=== PATIENT | male | born 1950 | race Caucasian/White ===

== ENCOUNTER 2017-10-11 14:40 | Inpatient (IN) | payer MEDICARE, OTHER ==
--- OUTSIDE RECORDS SUMMARY | 2017-10-20 08:50 | XMS REPORT ---
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 Active Onset: 07/24/2013 Mitral valve disorder Trinidad Marquez M.D. Active Onset: 07/24/2013 Congestive heart failure Trinidad Marquez M.D. 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 Active granulomas Onset: 11/22/2013 Epistaxis Trinidad Marquez M.D. Active Onset: 01/22/2014 Atrial flutter Trinidad Marquez M.D. Active Onset: 06/07/2014 Localized, primary osteoarthritis of Rylan Parham M.D. Active the hand Onset: 07/16/2014 Tricuspid valve disorder, non-rheumatic Trinidad Marquez M.D. Active Onset: 10/17/2014 Dyssomnpurvi Santiago MD Active Onset: 11/29/2014 Obstructive sleep apnea syndrome Ada Santiago MD Active Onset: 07/09/2015 Incomplete rotatr-cuff tear/ruptr of r Aston Liu M.D. Active shoulder, not trauma Onset: 07/09/2015 Metatarsalgia Aston Liu M.D. Active Onset: 07/02/2016 Paroxysmal atrial fibrillation Trinidad Marquez M.D. Active Family History Date Family Member(s) Problem(s) Comments General Heart Disease Father and paternal grandfather General Stroke Paternal grandmother Father CHF , Sleep Apnea Mother Heart Failure Siblings None Social History Type Date Description Comments Marital Status Lives With Alone Work Status Retired Cigarette Use Former Cigarette Smoker ETOH Use Rarely consumes alcohol 3 or 4 a month Smoking 1985 Patient is a former smoker Recreational Drug Use Never Used Drugs Daily Caffeine Herbal tea Daily Caffeine Comsumes on average 1 cup of decaff coffee per day Exercise Type/Frequency Exercises regularly not as regular in the cold weather Allergies, Adverse Reactions, Alerts Date Description Reaction Status Severity Comments 07/24/2013 NKDA active 08/28/2013 Cat Dander asthma- wheezing, active constrict, eyes itchy, puffy eyes 07/16/2014 Ragweed active per patient 09/07/2017 Dust Mites active 10/15/2017 Rabbits And Guinea Pigs active Medications Medication Date Status Form Strength Qnty SIG Indications Ordering Provider Magnesium Oxide 01/19/ Active Tablets 400(241.3 100ta 1 tab by Trinidad 2014 Mg) mg bs mouth every [place], day five M.D. days a week Atorvastatin / Active Tablets 10mg 30tab 1 po qd Unknown Calcium 0000 s Vitamin D3 High / Active Capsules 1000Unit 1 po qd in Unknown Potency 0000 the winter Fluocinolone / Active Cream 0.025% 60uni prn Unknown Acetonide 0000 ts Calcipotriene / Active Cream 0.005% 120un apply Unknown 0000 its nightly to psoriasis prn Amoxicillin / Active Capsules 500mg 12cap 4 tablets 1 Unknown 0000 s hour before dental work Lisinopril / Active Tablets 2.5mg 1 by mouth Unknown 0000 every day Eliquis / Active Tablets 5mg 1 tablet po Alex, 0000 twice daily Fay Tavares MD Desloratadine / Active Tablets 5mg 1 tablet po Alex, 0000 daily season Fay taken in MD Chaitanya fall Metoprolol / Active Tablets 50mg 60tab 1 by mouth Trinidad Tartrate s twice a day Yesenia Marquez Vitamin B12 / Active Tablets 1000mcg 1 by mouth Unknown 0000 ER every day Vitamin B6 / Active 100 mg daily Unknown 0000 Sotalol HCL (AF) 08/26/ Hx Tablets 80mg 180ta 1 tab by I48.4 Trinidad 2016 - bs mouth twice [place], 10/11/ a day M.D. 2017 Multaq 06/11/ Hx Tablets 400mg 180ta 1 by mouth I48.4 Trinidad 2013 - bs twice a day Jimmy, M.DBriana 2016 Amiodarone HCL 02/23/ Hx Tablets 200mg 60tab 1-2 by mouth 427.32 Trinidad 2013 - s every day as Jimmy, M.DBriana 2013 Sotalol HCL (AF) 01/22/ Hx Tablets 80mg 90tab 1 tab twice 427.32 Trinidad 2013 - s a day Jimmy, M.D. 2013 Metoprolol 11/22/ Hx Tablets 50mg 60tab 1 tab po bid Trinidad Tartrate 2013 Jimmy, M.D. 2013 Metoprolol 11/07/ Hx Tablets 25mg 1 po bid Trinidad Tartrate 2013 - Jimmy, M.D. 2013 Metoprolol 08/07/ Hx Tablets 50mg 90tab 1 1/2 po qd Trinidad Succinate ER 2012 - ER 24HR s Jimmy, 11/01/ M.D. 2013 Spironolactone 08/07/ Hx Tablets 25mg 30tab 1 po qod Trinidad 2012 - alternating [place], 11/22/ with lasix. M.D. 2014 Voltaren Gel 03/04/ Hx Gel 1% 3X100 2 gram to Danisha 2010 - G elbow 4 Enriquez-Yo 11/01/ times A day Yesenia christopher 2013 Warfarin Sodium / Hx 5mg As directed Mehran 0000 - adjusted Dr. Carlitos MD Carlitos 2016 Laurent Vitamin B6 00/00/ Hx 100mg po qd Unknown - 2016 Complex B 0000/ Hx Tablets 90tab 1 po qd Unknown 0000 - s 2017 Furosemide /00/ Hx Tablets 40mg 60tab 1 po qod Unknown 0000 - s alternating 2013 spironolacto ne. Potassium / Hx 8Meq Unknown 0000 - 2012 Diltiazem CD / Hx Caps ER 120mg 90cap 1 po qd Unknown 0000 - 24HR s 2012 Glucosamine 00/ Hx Capsules 1500Com 1 po qd Unknown Chondroitin 1500 0000 - Complex 2013 Calcipotriene / Hx Cream 0.005% prn Unknown - 2013 Clarinex / Hx 5mg prn seasonal Unknown - 2016 Proair HFA / Hx Aerosol 108(90Bas 1unit 2 puffs po Unknown 0000 - e) s q4h prn 09/16/ /Act 2013 Cheratussin ac / Hx prn Unknown - 2013 Acetaminophen ER / Hx Tablets 650mg 120ta 1 tab by Unknown 0000 - ER bs mouth twice 02/22/ a day as 2014 needed Aspirin / Hx Tablets 81mg 1 po qd Unknown - 2013 Pantoprazole / Hx Tablets 20mg 30tab 1 po qd Unknown Sodium 0000 - DR s 2013 Potassium 00/ Hx Tablets 10Meq 60tab 2 po qd Unknown Chloride SR 0000 - ER s 2013 Docusate Sodium / Hx Capsules 100mg 60cap 1 po bid Unknown 0000 - s 2013 Omeprazole 00/ Hx Capsules 40mg 30cap 1 by mouth Unknown 0000 - DR s every day 2014 Cpap /00/ Hx every night Unknown - 2015 Medications Administered in Office Medication Date Status Form Strength Qnty SIG Indications Ordering Provider Celestone 3 mg Administered Injection Danisha and 3mg 011 Juan fernández M.D. Vital Signs Date Vital Result Comment 10/15/2017 Height 67.5 inches 5'7.50" Weight 171.00 lb no shoes Heart Rate 84 /min BP Systolic Sitting 108 mmHg Lue reg cuff BP Diastolic Sitting 72 mmHg Lue reg cuff BP Systolic Standing 100 mmHg Lue reg cuff BP Diastolic Standing 72 mmHg Lue reg cuff Respiratory Rate 16 /min BMI (Body Mass Index) 26.4 kg/m2 Ejection Fraction 40-45% echo 08/01/17 10/11/2017 Height 67.5 inches 5'7.50" Weight 172.00 lb No shoes Heart Rate 84 /min BP Systolic Sitting 120 mmHg Lue reg cuff BP Diastolic Sitting 74 mmHg Lue reg cuff BP Systolic Standing 120 mmHg Lue reg cuff BP Diastolic Standing 80 mmHg Lue reg cuff Respiratory Rate 17 /min BMI (Body Mass Index) 26.5 kg/m2 Ejection Fraction 40-45% 08/01/2017-echo 09/07/2017 Height 67.5 inches 5'7.50" Weight 174.00 lb with out shoes Heart Rate 88 /min BP Systolic Sitting 136 mmHg Lue reg cuff BP Diastolic Sitting 86 mmHg Lue reg cuff BP Systolic Standing 128 mmHg Lue reg cuff BP Diastolic Standing 84 mmHg Lue reg cuff Respiratory Rate 17 /min BMI (Body Mass Index) 26.8 kg/m2 Ejection Fraction 40-45% date 08/01/17 ECHO 08/26/2017 Height 67.5 inches 5'7.50" Weight 174.00 lb without shoes Heart Rate 82 /min BP Systolic Sitting 118 mmHg Rue reg cuff BP Diastolic Sitting 84 mmHg Rue reg cuff BP Systolic Standing 112 mmHg Rue reg cuff BP Diastolic Standing 76 mmHg Rue reg cuff Respiratory Rate 17 /min BMI (Body Mass Index) 26.8 kg/m2 Ejection Fraction 40-45% date 08/01/17 07/20/2017 Height 67.5 inches 5'7.50" Weight 178.00 lb with shoes Heart Rate 84 /min BP Systolic Sitting 120 mmHg Rue reg cuff BP Diastolic Sitting 80 mmHg Rue reg cuff BP Systolic Standing 114 mmHg Rue reg cuff BP Diastolic Standing 74 mmHg Rue reg cuff Respiratory Rate 17 /min BMI (Body Mass Index) 27.5 kg/m2 Ejection Fraction 50-55% date 03/27/2014 ECHO 07/02/2016 Height 67.5 inches 5'7.50" Weight 168.00 lb w/o shoes Heart Rate 86 /min BP Systolic Sitting 102 mmHg Rue, reg cuff BP Diastolic Sitting 70 mmHg Rue, reg cuff BP Systolic Standing 104 mmHg Rue BP Diastolic Standing 70 mmHg Rue Respiratory Rate 16 /min BMI (Body Mass Index) 25.9 kg/m2 Ejection Fraction 50-55% as of 03/28/14 echo 07/09/2015 Height 67.5 inches 5'7.50" Weight 172.00 lb Heart Rate 92 /min BP Systolic Sitting 126 mmHg BP Diastolic Sitting 90 mmHg Pain Level 7 BMI (Body Mass Index) 26.5 kg/m2 07/02/2015 Height 67.5 inches 5'7.50" Weight 172.00 lb with shoes Heart Rate 76 /min BP Systolic Sitting 142 mmHg R arm , Reg cuff BP Diastolic Sitting 100 mmHg R arm , Reg cuff BP Systolic Standing 148 mmHg BP Diastolic Standing 100 mmHg Respiratory Rate 18 /min BMI (Body Mass Index) 26.5 kg/m2 Ejection Fraction 50-55% 03/28/14 01/17/2015 Height 67.5 inches 5'7.50" Weight 168.00 lb Heart Rate 75 /min BP Systolic Sitting 120 mmHg BP Diastolic Sitting 80 mmHg O2 % BldC Oximetry 96 % BMI (Body Mass Index) 25.9 kg/m2 Neck Circumference in inches 15.5 01/07/2015 Height 67.5 inches 5'7.50" Weight 171.31 lb no shoes Heart Rate 80 /min BP Systolic Sitting 136 mmHg LA, reg cuff BP Diastolic Sitting 88 mmHg LA, reg cuff BP Systolic Standing 128 mmHg LA BP Diastolic Standing 84 mmHg LA Respiratory Rate 16 /min BMI (Body Mass Index) 26.4 kg/m2 11/29/2014 Heart Rate 86 /min BP Systolic Sitting 148 mmHg BP Diastolic Sitting 84 mmHg Respiratory Rate 20 /min O2 % BldC Oximetry 97 % 10/17/2014 Height 68 inches 5'8" Weight 170.38 lb with shoes on Heart Rate 52 /min BP Systolic Sitting 142 mmHg BP Diastolic Sitting 80 mmHg Respiratory Rate 18 /min Body Temperature 98.6 F O2 % BldC Oximetry 98 % BMI (Body Mass Index) 25.9 kg/m2 Neck Circumference in inches 16 09/17/2014 Height 67 inches 5'7" Weight 171.00 lb w/shoes Heart Rate 74 /min BP Systolic Sitting 142 mmHg LA reg cuff BP Diastolic Sitting 78 mmHg LA reg cuff BP Systolic Standing 140 mmHg LA reg cuff BP Diastolic Standing 80 mmHg LA reg cuff Respiratory Rate 12 /min BMI (Body Mass Index) 26.8 kg/m2 07/16/2014 Height 67 inches 5'7" Weight 167.00 lb without shoes Heart Rate 80 /min BP Systolic Sitting 156 mmHg Ra reg cuff BP Diastolic Sitting 100 mmHg Ra reg cuff BP Systolic Standing 160 mmHg Ra reg cuff BP Diastolic Standing 100 mmHg Ra reg cuff Respiratory Rate 17 /min BMI (Body Mass Index) 26.2 kg/m2 06/07/2014 Height 67.5 inches 5'7.50" Weight 169.00 lb Heart Rate 80 /min BP Systolic Sitting 130 mmHg BP Diastolic Sitting 82 mmHg Pain Level 7 BMI (Body Mass Index) 26.1 kg/m2 02/23/2014 Height 67.5 inches 5'7.50" Weight 167.00 lb with out shoes Heart Rate 100 /min BP Systolic Sitting 130 mmHg Ra reg cuff BP Diastolic Sitting 98 mmHg Ra reg cuff BP Systolic Standing 128 mmHg Ra reg cuff BP Diastolic Standing 90 mmHg Ra reg cuff Respiratory Rate 17 /min BMI (Body Mass Index) 25.8 kg/m2 02/21/2014 Height 67.5 inches 5'7.50" Weight 170.00 lb Heart Rate 92 /min BP Systolic Sitting 134 mmHg LA reg cuff BP Diastolic Sitting 94 mmHg LA reg cuff BMI (Body Mass Index) 26.2 kg/m2 02/02/2014 Height 67.5 inches 5'7.50" Weight 167.00 lb Heart Rate 80 /min BP Systolic Sitting 116 mmHg LA reg cuff BP Diastolic Sitting 82 mmHg LA reg cuff BP Systolic Standing 114 mmHg LA BP Diastolic Standing 86 mmHg LA Respiratory Rate 18 /min BMI (Body Mass Index) 25.8 kg/m2 01/26/2014 Height 67.5 inches 5'7.50" Weight 168.00 lb Heart Rate 88 /min BP Systolic Standing 116 mmHg LA reg cuff BP Diastolic Standing 92 mmHg LA reg cuff BP Systolic Lying Down 114 mmHg LA BP Diastolic Lying Down 90 mmHg LA Respiratory Rate 16 /min BMI (Body Mass Index) 25.9 kg/m2 01/22/2014 Height 67 inches 5'7" Weight 168.31 lb no shoes Heart Rate 76 /min BP Systolic Sitting 126 mmHg LA, reg cuff BP Diastolic Sitting 84 mmHg LA, reg cuff BP Systolic Standing 124 mmHg LA BP Diastolic Standing 84 mmHg LA Respiratory Rate 14 /min BMI (Body Mass Index) 26.4 kg/m2 11/22/2013 Height 67 inches 5'7" Weight 163.00 lb Heart Rate 100 /min BP Systolic Sitting 124 mmHg LA reg cuff BP Diastolic Sitting 82 mmHg LA reg cuff BP Systolic Standing 124 mmHg LA BP Diastolic Standing 88 mmHg LA Respiratory Rate 18 /min BMI (Body Mass Index) 25.5 kg/m2 08/28/2013 Height 67.5 inches 5'7.50" Weight 158.00 lb with shoes Heart Rate 8286 /min sit and stand HR irreg. BP Systolic Sitting 100 mmHg L arm reg cuff BP Diastolic Sitting 74 mmHg L arm reg cuff BP Systolic Standing 118 mmHg L arm reg cuff BP Diastolic Standing 80 mmHg L arm reg cuff Respiratory Rate 16 /min BMI (Body Mass Index) 24.4 kg/m2 08/22/2013 Height 67.5 inches 5'7.50" Weight 158.00 lb 4 Lbs increase from 08/07/13 Heart Rate 76 /min BP Systolic Sitting 120 mmHg Lf arm, reg cuff BP Diastolic Sitting 74 mmHg Lf arm, reg cuff BP Systolic Standing 118 mmHg BP Diastolic Standing 70 mmHg Respiratory Rate 14 /min BMI (Body Mass Index) 24.4 kg/m2 08/07/2013 Height 67.5 inches 5'7.50" Weight 154.50 lb Heart Rate 80 /min BP Systolic Sitting 118 mmHg Ra reg cuff BP Diastolic Sitting 84 mmHg Ra reg cuff BP Systolic Standing 116 mmHg Ra BP Diastolic Standing 82 mmHg Ra Respiratory Rate 16 /min BMI (Body Mass Index) 23.8 kg/m2 07/24/2013 Height 67 inches 5'7" Weight 151.00 lb Heart Rate 60 /min irregular BP Systolic 128 mmHg Ra reg cuff BP Diastolic 82 mmHg Ra reg cuff BP Systolic Sitting 124 mmHg LA BP Diastolic Sitting 82 mmHg LA BP Systolic Standing 132 mmHg BP Diastolic Standing 84 mmHg BMI (Body Mass Index) 23.6 kg/m2 11/21/2010 Height 68 inches 5'8" Weight 155.00 lb Heart Rate 72 /min BP Systolic 138 mmHg BP Diastolic 78 mmHg BMI (Body Mass Index) 23.6 kg/m2 Results Test Date Test Result H/L Range Note Order 07/02/2016 EKG <pending> Basic Metabolic Panel 12/26/2015 Sodium 137 mmol/L 133-145 Potassium 4.2 mmol/L 3.5-5.0 Chloride 103 mmol/L 101-111 Co2 Carbon Dioxide 25 mmol/L 22-32 Anion Gap 9 mmol/L 2-11 Glucose 82 mg/dL 70-100 Blood Urea Nitrogen 17 mg/dL 6-24 Creatinine 0.97 mg/dL 0.67-1.17 BUN/Creatinine Ratio 17.5 8-20 Calcium 9.4 mg/dL 8.6-10.3 Egfr Non- 77.7 >60 Egfr 99.9 >60 1 Laboratory test finding 12/26/2015 LDL Cholesterol Direct 85 mg/dL 2 Ast (Sgot) 58 U/L High 13-39 CBC Auto Diff 07/05/2015 White Blood Count 5.5 10^3/uL 4.8-10.8 Red Blood Count 4.48 10^6/uL 4.0-5.4 Hemoglobin 15.8 g/dL 14.0-18.0 Hematocrit 47 % 42-52 Mean Corpuscular Volume 105 fL High 80-94 Mean Corpuscular Hemoglobin 35 pg High 27-31 Mean Corpuscular HGB Conc 34 g/dL 31-36 Red Cell Distribution Width 13 % 10.5-15 Platelet Count 177 10^3/uL 150-450 Mean Platelet Volume 8 um3 7.4-10.4 Abs Neutrophils 3.0 10^3/uL 1.5-7.7 Abs Lymphocytes 1.5 10^3/uL 1.0-4.8 Abs Monocytes 0.6 10^3/uL 0-0.8 Abs Eosinophils 0.3 10^3/uL 0-0.6 Abs Basophils 0.1 10^3/uL 0-0.2 Abs Nucleated RBC 0 10^3/uL Granulocyte % 54.4 % 38-83 Lymphocyte % 27.6 % 25-47 Monocyte % 11.0 % High 1-9 Eosinophil % 5.1 % 0-6 Basophil % 1.9 % 0-2 Nucleated Red Blood Cells % 0 Inr/Protime 07/05/2015 Inr 3.09 High 0.78-1.07 Comp Metabolic Panel 07/05/2015 Sodium 136 mmol/L 133-145 Potassium 4.1 mmol/L 3.5-5.0 Chloride 102 mmol/L 101-111 Co2 Carbon Dioxide 25 mmol/L 22-32 Anion Gap 9 mmol/L 2-11 Glucose 109 mg/dL High 70-100 Blood Urea Nitrogen 15 mg/dL 6-24 Creatinine 0.83 mg/dL 0.67-1.17 BUN/Creatinine Ratio 18.1 8-20 Calcium 8.8 mg/dL 8.6-10.3 Total Protein 6.7 g/dL 6.4-8.9 Albumin 4.4 g/dL 3.2-5.2 Globulin 2.3 g/dL 2-4 Albumin/Globulin Ratio 1.9 1-3 Total Bilirubin 1.20 mg/dL High 0.2-1.0 Alkaline Phosphatase 53 U/L 34-104 Alt 69 U/L High 7-52 Ast 85 U/L High 13-39 Egfr Non- 93.0 >60 Egfr 119.6 >60 3 Laboratory test finding 07/05/2015 LDL Cholesterol Direct 103 mg/dL 4 C Reactive Protein 2.23 mg/L < 5.00 5 Laboratory test finding 06/01/2014 Inr 1.46 High 0.85-1.06 Basic Metabolic Panel 06/01/2014 Sodium 138 mmol/L 133-145 Potassium 3.4 mmol/L Low 3.7-5.6 Chloride 105 mmol/L 101-111 Co2 Carbon Dioxide 24 mmol/L 22-32 Anion Gap 9 mmol/L 2-11 Glucose 112 mg/dL High 70-100 Blood Urea Nitrogen 16 mg/dL 6-24 Creatinine 0.87 mg/dL 0.67-1.17 BUN/Creatinine Ratio 18.4 8-20 Calcium 9.0 mg/dL 8.6-10.3 Egfr Non- 88.3 >60 Egfr 113.6 >60 6 Laboratory test finding 06/01/2014 Free T4 1.04 ng/mL 0.61-1.12 TSH (Thyroid Stimulating Horm) 1.82 IU/mL 0.34-5.60 PSA Screening 9.920 ng/mL High 0-4.000 7 Laboratory test finding 05/11/2014 Inr 2.85 High 0.85-1.06 Basic Metabolic Panel 05/11/2014 Sodium 138 mmol/L 133-145 Potassium 4.0 mmol/L 3.7-5.6 Chloride 104 mmol/L 101-111 Co2 Carbon Dioxide 26 mmol/L 22-32 Anion Gap 8 mmol/L 2-11 Glucose 94 mg/dL 70-100 Blood Urea Nitrogen 14 mg/dL 6-24 Creatinine 0.87 mg/dL 0.67-1.17 BUN/Creatinine Ratio 16.1 8-20 Calcium 8.9 mg/dL 8.6-10.3 Egfr Non- 88.3 >60 Egfr 113.6 >60 8 Laboratory test finding 04/06/2014 Free T4 0.88 ng/mL 0.61-1.12 TSH (Thyroid Stimulating Horm) 2.12 IU/mL 0.34-5.60 Inr/Protime 04/06/2014 Inr 4.02 High 0.85-1.06 Laboratory test finding 04/03/2014 Inr 5.09 High 0.85-1.06 Laboratory test finding 03/31/2014 Inr 3.74 High 0.85-1.06 Laboratory test finding 03/26/2014 Inr 6.72 High 0.85-1.06 9 Laboratory test finding 03/19/2014 Inr 3.26 High 0.85-1.06 Laboratory test finding 03/14/2014 Inr 5.79 High 0.85-1.06 10, 11 Laboratory test finding 03/07/2014 Inr 1.59 High 0.85-1.06 Laboratory test finding 02/28/2014 Iron 213 g/dL High 50-212 Basic Metabolic Panel 02/28/2014 Sodium 137 mmol/L 133-145 Potassium 3.9 mmol/L 3.7-5.6 Chloride 105 mmol/L 101-111 Co2 Carbon Dioxide 26 mmol/L 22-32 Anion Gap 6 mmol/L 2-11 Glucose 97 mg/dL 70-100 Blood Urea Nitrogen 16 mg/dL 6-24 Creatinine 0.81 mg/dL 0.67-1.17 BUN/Creatinine Ratio 19.8 8-20 Calcium 9.1 mg/dL 8.6-10.3 Egfr Non- 96.2 >60 Egfr 123.8 >60 12 Laboratory test finding 02/28/2014 Inr 1.43 High 0.85-1.06 Basic Metabolic Panel 02/05/2014 Sodium 139 mmol/L 133-145 Potassium 4.3 mmol/L 3.7-5.6 Chloride 105 mmol/L 101-111 Co2 Carbon Dioxide 27 mmol/L 22-32 Anion Gap 7 mmol/L 2-11 Glucose 95 mg/dL 70-100 Blood Urea Nitrogen 17 mg/dL 6-24 Creatinine 0.81 mg/dL 0.67-1.17 BUN/Creatinine Ratio 21.0 High 8-20 Calcium 9.3 mg/dL 8.6-10.3 Egfr Non- 96.2 >60 Egfr 123.8 >60 13 Inr/Protime 02/05/2014 Inr 2.77 High 0.85-1.06 14 Basic Metabolic Panel 01/17/2014 Sodium 135 mmol/L 133-145 Potassium 4.1 mmol/L 3.7-5.6 Chloride 104 mmol/L 101-111 Co2 Carbon Dioxide 26 mmol/L 22-32 Anion Gap 5 mmol/L 2-11 Glucose 103 mg/dL High 70-100 Blood Urea Nitrogen 14 mg/dL 6-24 Creatinine 0.72 mg/dL 0.67-1.17 BUN/Creatinine Ratio 19.4 8-20 Calcium 9.2 mg/dL 8.6-10.3 Egfr Non- 110.3 >60 Egfr 141.8 >60 15 Laboratory test finding 01/17/2014 Magnesium 1.7 mg/dL Low 1.9-2.7 Laboratory test finding 01/05/2014 Inr 2.07 High 0.85-1.06 Laboratory test finding 12/27/2013 Inr 1.65 High 0.85-1.06 Laboratory test finding 12/18/2013 Inr 3.44 High 0.85-1.06 Laboratory test finding 12/11/2013 Inr 1.59 High 0.85-1.06 CBC No Diff 12/04/2013 White Blood Count 5.7 10^3/uL 4.8-10.8 Red Blood Count 4.30 10^6/uL 4.0-5.4 Hemoglobin 14.8 g/dL 14.0-18.0 Hematocrit 43 % 42-52 Mean Corpuscular Volume 100 fL High 80-94 Mean Corpuscular Hemoglobin 34 pg High 27-31 Mean Corpuscular HGB Conc 34 g/dL 31-36 Red Cell Distribution Width 14 % 10.5-15 Platelet Count 185 10^3/uL 150-450 Mean Platelet Volume 8 um3 7.4-10.4 Inr/Protime 12/04/2013 Inr 4.37 High 0.85-1.06 Basic Metabolic Panel 12/04/2013 Sodium 137 mmol/L 133-145 Potassium 4.3 mmol/L 3.7-5.6 Chloride 101 mmol/L 101-111 Co2 Carbon Dioxide 30 mmol/L 22-32 Anion Gap 6 mmol/L 2-11 Glucose 140 mg/dL High 70-100 Blood Urea Nitrogen 15 mg/dL 6-24 Creatinine 0.71 mg/dL 0.67-1.17 BUN/Creatinine Ratio 21.1 High 8-20 Calcium 9.6 mg/dL 8.6-10.3 Egfr Non- 112.1 >60 Egfr 144.1 >60 16 Laboratory test finding 12/04/2013 Iron 198 g/dL 50-212 PSA Diagnostic 6.111 ng/mL High 0-4.000 17 Laboratory test finding 11/27/2013 Inr 1.91 High 0.85-1.06 Laboratory test finding 11/20/2013 Inr 4.25 High 0.85-1.06 Laboratory test finding 11/13/2013 Inr 2.30 High 0.85-1.06 Laboratory test finding 11/10/2013 Inr 6.90 High 0.85-1.06 18 Basic Metabolic Panel 11/07/2013 Sodium 134 mmol/L 133-145 Potassium 4.8 mmol/L 3.7-5.6 Chloride 98 mmol/L Low 101-111 Co2 Carbon Dioxide 30 mmol/L 22-32 Anion Gap 6 mmol/L 2-11 Glucose 109 mg/dL High 70-100 Blood Urea Nitrogen 17 mg/dL 6-24 Creatinine 0.78 mg/dL 0.67-1.17 BUN/Creatinine Ratio 21.8 High 8-20 Calcium 9.7 mg/dL 8.6-10.3 Egfr Non- 100.5 >60 Egfr 129.3 >60 19 Laboratory test finding 11/06/2013 Inr 1.46 High 0.85-1.06 Laboratory test finding 10/13/2013 Inr 1.84 High 0.85-1.06 Laboratory test finding 10/09/2013 Inr 1.25 High 0.85-1.06 Laboratory test finding 09/25/2013 Inr 2.32 High 0.85-1.06 20 Laboratory test finding 09/13/2013 Inr 2.98 High 0.85-1.06 21 Laboratory test finding 09/06/2013 Inr 2.94 High 0.85-1.06 22 Laboratory test finding 08/31/2013 Inr 3.80 High 0.85-1.06 23 Laboratory test finding 08/25/2013 Inr 1.83 High 0.85-1.06 24 Laboratory test finding 08/21/2013 Inr 1.18 High 0.85-1.06 25 Laboratory test finding 08/16/2013 Inr 1.19 High 0.85-1.06 26 Activated Partial Thrombo Time 33.0 seconds 24.0-36.1 27 CBC No Diff 08/14/2013 White Blood Count 8.4 10^3/uL 4.8-10.8 Red Blood Count 4.60 10^6/uL 4.0-5.4 Hemoglobin 15.7 g/dL 14.0-18.0 Hematocrit 46 % 42-52 Mean Corpuscular Volume 99 fL High 80-94 Mean Corpuscular Hemoglobin 34 pg High 27-31 Mean Corpuscular HGB Conc 35 g/dL 31-36 Red Cell Distribution Width 13 % 10.5-15 Platelet Count 153 10^3/uL 150-450 Mean Platelet Volume 9 um3 7.4-10.4 Inr/Protime 08/14/2013 Inr 2.53 High 0.85-1.06 28 Laboratory test finding 08/14/2013 Activated Partial 40.3 seconds High 24.0-36.1 Thrombo Time Basic Metabolic Panel 08/14/2013 Sodium 137 mmol/L 133-145 Potassium 4.0 mmol/L 3.5-5.0 Chloride 103 mmol/L 101-111 Co2 Carbon Dioxide 26.0 mmol/L 22-32 Anion Gap 8.0 mmol/L 2-11 Glucose 143 mg/dL High 70-100 Blood Urea Nitrogen 18 mg/dL 6-24 Creatinine 0.90 mg/dL 0.50-1.40 BUN/Creatinine Ratio 20.0 8-20 Calcium 9.3 mg/dL 8.1-9.9 Egfr Non- 85.2 >60 Egfr 109.6 >60 29 Laboratory test finding 08/04/2013 Inr 2.49 High 0.85-1.06 30 Laboratory test finding 07/31/2013 Inr 2.48 High 0.85-1.06 31 Basic Metabolic Panel 07/31/2013 Sodium 137 mmol/L 133-145 Potassium 4.1 mmol/L 3.5-5.0 Chloride 101 mmol/L 101-111 Co2 Carbon Dioxide 25.0 mmol/L 22-32 Anion Gap 11.0 mmol/L 2-11 Glucose 107 mg/dL High 70-100 Blood Urea Nitrogen 14 mg/dL 6-24 Creatinine 0.70 mg/dL 0.50-1.40 BUN/Creatinine Ratio 20.0 8-20 Calcium 9.3 mg/dL 8.1-9.9 Egfr Non- 113.9 >60 Egfr 146.5 >60 32 Basic Metabolic Panel 07/27/2013 Sodium 137 mmol/L 133-145 Potassium 4.3 mmol/L 3.5-5.0 Chloride 102 mmol/L 101-111 Co2 Carbon Dioxide 24.0 mmol/L 22-32 Anion Gap 11.0 mmol/L 2-11 Glucose 109 mg/dL High 70-100 Blood Urea Nitrogen 16 mg/dL 6-24 Creatinine 0.80 mg/dL 0.50-1.40 BUN/Creatinine Ratio 20.0 8-20 Calcium 9.2 mg/dL 8.1-9.9 Egfr Non- 97.6 >60 Egfr 125.6 >60 33 Laboratory test finding 07/27/2013 Inr 4.27 High 0.87-0.97 Laboratory test finding 07/21/2013 Inr 1.95 High 0.87-0.97 Basic Metabolic Panel 07/21/2013 Sodium 137 mmol/L 133-145 Potassium 4.0 mmol/L 3.5-5.0 Chloride 101 mmol/L 101-111 Co2 Carbon Dioxide 27.0 mmol/L 22-32 Anion Gap 9.0 mmol/L 2-11 Glucose 96 mg/dL 70-100 Blood Urea Nitrogen 14 mg/dL 6-24 Creatinine 0.80 mg/dL 0.50-1.40 BUN/Creatinine Ratio 17.5 8-20 Calcium 8.9 mg/dL 8.1-9.9 Egfr Non- 97.6 >60 Egfr 125.6 >60 34 Laboratory test 06/05/2013 Inr 2.84 High 0.87-0.97 finding Laboratory test 06/02/2013 Inr 4.50 High 0.87-0.97 finding Laboratory test 05/30/2013 TSH (Thyroid 1.33 miu/mL 0.34-5.60 finding Stimulating Horm) Basic Metabolic Panel 05/30/2013 Sodium 138 mmol/L 133-145 Potassium 4.2 mmol/L 3.5-5.0 Chloride 105 mmol/L 101-111 Co2 Carbon Dioxide 26.0 mmol/L 22-32 Anion Gap 7.0 mmol/L 2-11 Glucose 130 mg/dL High 70-100 Blood Urea Nitrogen 16 mg/dL 6-24 Creatinine 1.00 mg/dL 0.50-1.40 BUN/Creatinine Ratio 16.0 8-20 Calcium 9.3 mg/dL 8.1-9.9 Egfr Non- 75.5 >60 Egfr 97.1 >60 35 Inr/Protime 05/30/2013 Inr 1.18 High 0.87-0.97 Hemoglobin/Hematacrit 05/30/2013 Hemoglobin 15.3 g/dL 14.0-18.0 Hematocrit 45 % 42-52 1 Because ethnic data is not always readily available, this report includes an eGFR for both -Americans and non- Americans. The National Kidney Disease Education Program (NKDEP) does not endorse the use of the MDRD equation for patients that are not between the ages of 18 and 70, are , have extremes of body size, muscle mass, or nutritional status, or are non- or non-. According to the National Kidney Foundation, irrespective of diagnosis, the stage of the disease is based on the level of kidney function: Stage Description GFR(mL/min/1.73 m(2)) 1 Kidney damage with normal or decreased GFR 90 2 Kidney damage with mild decrease in GFR 60-89 3 Moderate decrease in GFR 30-59 4 Severe decrease in GFR 15-29 5 Kidney failure <15 (or dialysis) 2 Desirable: <100 mg/dL Near Optimal: 100-129 mg/dL Borderline High: 130-159 mg/dL High: 160-189 mg/dL Very High: >189 mg/dL 3 Because ethnic data is not always readily available, this report includes an eGFR for both -Americans and non- Americans. The National Kidney Disease Education Program (NKDEP) does not endorse the use of the MDRD equation for patients that are not between the ages of 18 and 70, are , have extremes of body size, muscle mass, or nutritional status, or are non- or non-. According to the National Kidney Foundation, irrespective of diagnosis, the stage of the disease is based on the level of kidney function: Stage Description GFR(mL/min/1.73 m(2)) 1 Kidney damage with normal or decreased GFR 90 2 Kidney damage with mild decrease in GFR 60-89 3 Moderate decrease in GFR 30-59 4 Severe decrease in GFR 15-29 5 Kidney failure <15 (or dialysis) 4 Desirable: <100 mg/dL Near Optimal: 100-129 mg/dL Borderline High: 130-159 mg/dL High: 160-189 mg/dL Very High: >189 mg/dL 5 Acute inflammation: >10.00 6 Because ethnic data is not always readily available, this report includes an eGFR for both -Americans and non- Americans. The National Kidney Disease Education Program (NKDEP) does not endorse the use of the MDRD equation for patients that are not between the ages of 18 and 70, are , have extremes of body size, muscle mass, or nutritional status, or are non- or non-. According to the National Kidney Foundation, irrespective of diagnosis, the stage of the disease is based on the level of kidney function: Stage Description GFR(mL/min/1.73 m(2)) 1 Kidney damage with normal or decreased GFR 90 2 Kidney damage with mild decrease in GFR 60-89 3 Moderate decrease in GFR 30-59 4 Severe decrease in GFR 15-29 5 Kidney failure <15 (or dialysis) 7 Serum levels of PSA measured using the [employer] DXI Hybritech immunoassay should not be interpreted as absolute evidence of the presence or absence of disease. The PSA value should be used in conjunction with other pertinent clinical diagnostic procedures. The values obtained with different assay methods or kits cannot be used interchangeably. 8 Because ethnic data is not always readily available, this report includes an eGFR for both -Americans and non- Americans. The National Kidney Disease Education Program (NKDEP) does not endorse the use of the MDRD equation for patients that are not between the ages of 18 and 70, are , have extremes of body size, muscle mass, or nutritional status, or are non- or non-. According to the National Kidney Foundation, irrespective of diagnosis, the stage of the disease is based on the level of kidney function: Stage Description GFR(mL/min/1.73 m(2)) 1 Kidney damage with normal or decreased GFR 90 2 Kidney damage with mild decrease in GFR 60-89 3 Moderate decrease in GFR 30-59 4 Severe decrease in GFR 15-29 5 Kidney failure <15 (or dialysis) 9 Verbal to Jolly Esparza RN by [id number] at 0904 on 03/26/14. Results read back accurately. 10 Verbal to Jolly by [id number] at 0830 on 03/14/14.~Results read back accurately. 11 Verbal to Jolly by [id number] at 0830 on 03/14/14. Results read back accurately. 12 Because ethnic data is not always readily available, this report includes an eGFR for both -Americans and non- Americans. The National Kidney Disease Education Program (NKDEP) does not endorse the use of the MDRD equation for patients that are not between the ages of 18 and 70, are , have extremes of body size, muscle mass, or nutritional status, or are non- or non-. According to the National Kidney Foundation, irrespective of diagnosis, the stage of the disease is based on the level of kidney function: Stage Description GFR(mL/min/1.73 m(2)) 1 Kidney damage with normal or decreased GFR 90 2 Kidney damage with mild decrease in GFR 60-89 3 Moderate decrease in GFR 30-59 4 Severe decrease in GFR 15-29 5 Kidney failure <15 (or dialysis) 13 Because ethnic data is not always readily available, this report includes an eGFR for both -Americans and non- Americans. The National Kidney Disease Education Program (NKDEP) does not endorse the use of the MDRD equation for patients that are not between the ages of 18 and 70, are , have extremes of body size, muscle mass, or nutritional status, or are non- or non-. According to the National Kidney Foundation, irrespective of diagnosis, the stage of the disease is based on the level of kidney function: Stage Description GFR(mL/min/1.73 m(2)) 1 Kidney damage with normal or decreased GFR 90 2 Kidney damage with mild decrease in GFR 60-89 3 Moderate decrease in GFR 30-59 4 Severe decrease in GFR 15-29 5 Kidney failure <15 (or dialysis) 14 To be drawn Wednesday02/05/14 15 Because ethnic data is not always readily available, this report includes an eGFR for both -Americans and non- Americans. The National Kidney Disease Education Program (NKDEP) does not endorse the use of the MDRD equation for patients that are not between the ages of 18 and 70, are , have extremes of body size, muscle mass, or nutritional status, or are non- or non-. According to the National Kidney Foundation, irrespective of diagnosis, the stage of the disease is based on the level of kidney function: Stage Description GFR(mL/min/1.73 m(2)) 1 Kidney damage with normal or decreased GFR 90 2 Kidney damage with mild decrease in GFR 60-89 3 Moderate decrease in GFR 30-59 4 Severe decrease in GFR 15-29 5 Kidney failure <15 (or dialysis) 16 Because ethnic data is not always readily available, this report includes an eGFR for both -Americans and non- Americans. The National Kidney Disease Education Program (NKDEP) does not endorse the use of the MDRD equation for patients that are not between the ages of 18 and 70, are , have extremes of body size, muscle mass, or nutritional status, or are non- or non-. According to the National Kidney Foundation, irrespective of diagnosis, the stage of the disease is based on the level of kidney function: Stage Description GFR(mL/min/1.73 m(2)) 1 Kidney damage with normal or decreased GFR 90 2 Kidney damage with mild decrease in GFR 60-89 3 Moderate decrease in GFR 30-59 4 Severe decrease in GFR 15-29 5 Kidney failure <15 (or dialysis) 17 Serum levels of PSA measured using the [employer] DXI Hybritech immunoassay should not be interpreted as absolute evidence of the presence or absence of disease. The PSA value should be used in conjunction with other pertinent clinical diagnostic procedures. The values obtained with different assay methods or kits cannot be used interchangeably. 18 Verbal to TERRI LEE by [id number] at 0926 on 11/10/13. Results read back accurately. 19 Because ethnic data is not always readily available, this report includes an eGFR for both -Americans and non- Americans. The National Kidney Disease Education Program (NKDEP) does not endorse the use of the MDRD equation for patients that are not between the ages of 18 and 70, are , have extremes of body size, muscle mass, or nutritional status, or are non- or non-. According to the National Kidney Foundation, irrespective of diagnosis, the stage of the disease is based on the level of kidney function: Stage Description GFR(mL/min/1.73 m(2)) 1 Kidney damage with normal or decreased GFR 90 2 Kidney damage with mild decrease in GFR 60-89 3 Moderate decrease in GFR 30-59 4 Severe decrease in GFR 15-29 5 Kidney failure <15 (or dialysis) 20 Please note the change in the INR reference range effective 13. 21 Please note the change in the INR reference range effective 13. 22 Please note the change in the INR reference range effective 13. 23 Please note the change in the INR reference range effective 13. 24 Please note the change in the INR reference range effective 13. 25 Please note the change in the INR reference range effective 13. 26 Verbal to [id number] by [id number] at 1033 on 08/16/13. Results read back accurately. Please note the change in the INR reference range effective 13. 27 CALL RESULTS TO [id number] 28 Please note the change in the INR reference range effective 13. 29 Because ethnic data is not always readily available, this report includes an eGFR for both -Americans and non- Americans. The National Kidney Disease Education Program (NKDEP) does not endorse the use of the MDRD equation for patients that are not between the ages of 18 and 70, are , have extremes of body size, muscle mass, or nutritional status, or are non- or non-. According to the National Kidney Foundation, irrespective of diagnosis, the stage of the disease is based on the level of kidney function: Stage Description GFR(mL/min/1.73 m(2)) 1 Kidney damage with normal or decreased GFR 90 2 Kidney damage with mild decrease in GFR 60-89 3 Moderate decrease in GFR 30-59 4 Severe decrease in GFR 15-29 5 Kidney failure <15 (or dialysis) 30 Please note the change in the INR reference range effective 13. 31 Please note the change in the INR reference range effective 13. 32 Because ethnic data is not always readily available, this report includes an eGFR for both -Americans and non- Americans. The National Kidney Disease Education Program (NKDEP) does not endorse the use of the MDRD equation for patients that are not between the ages of 18 and 70, are , have extremes of body size, muscle mass, or nutritional status, or are non- or non-. According to the National Kidney Foundation, irrespective of diagnosis, the stage of the disease is based on the level of kidney function: Stage Description GFR(mL/min/1.73 m(2)) 1 Kidney damage with normal or decreased GFR 90 2 Kidney damage with mild decrease in GFR 60-89 3 Moderate decrease in GFR 30-59 4 Severe decrease in GFR 15-29 5 Kidney failure <15 (or dialysis) 33 Because ethnic data is not always readily available, this report includes an eGFR for both -Americans and non- Americans. The National Kidney Disease Education Program (NKDEP) does not endorse the use of the MDRD equation for patients that are not between the ages of 18 and 70, are , have extremes of body size, muscle mass, or nutritional status, or are non- or non-. According to the National Kidney Foundation, irrespective of diagnosis, the stage of the disease is based on the level of kidney function: Stage Description GFR(mL/min/1.73 m(2)) 1 Kidney damage with normal or decreased GFR 90 2 Kidney damage with mild decrease in GFR 60-89 3 Moderate decrease in GFR 30-59 4 Severe decrease in GFR 15-29 5 Kidney failure <15 (or dialysis) 34 Because ethnic data is not always readily available, this report includes an eGFR for both -Americans and non- Americans. The National Kidney Disease Education Program (NKDEP) does not endorse the use of the MDRD equation for patients that are not between the ages of 18 and 70, are , have extremes of body size, muscle mass, or nutritional status, or are non- or non-. According to the National Kidney Foundation, irrespective of diagnosis, the stage of the disease is based on the level of kidney function: Stage Description GFR(mL/min/1.73 m(2)) 1 Kidney damage with normal or decreased GFR 90 2 Kidney damage with mild decrease in GFR 60-89 3 Moderate decrease in GFR 30-59 4 Severe decrease in GFR 15-29 5 Kidney failure <15 (or dialysis) 35 Because ethnic data is not always readily available, this report includes an eGFR for both -Americans and non- Americans. The National Kidney Disease Education Program (NKDEP) does not endorse the use of the MDRD equation for patients that are not between the ages of 18 and 70, are , have extremes of body size, muscle mass, or nutritional status, or are non- or non-. According to the National Kidney Foundation, irrespective of diagnosis, the stage of the disease is based on the level of kidney function: Stage Description GFR(mL/min/1.73 m(2)) 1 Kidney damage with normal or decreased GFR 90 2 Kidney damage with mild decrease in GFR 60-89 3 Moderate decrease in GFR 30-59 4 Severe decrease in GFR 15-29 5 Kidney failure <15 (or dialysis) Procedures Date CPT Code Description Status Comment 10/15/2017 68338 EKG Tracing & Interpretation Completed 10/11/2017 03314 EKG Tracing & Interpretation Completed 09/09/2017 59329 Cardioversion Completed 09/07/2017 16062 EKG Tracing & Interpretation Completed 08/26/2017 20965 EKG Tracing & Interpretation Completed 08/24/2017 12269 ECHO Stress Test Incl Perf Completed Contiuous ekg Monitoring W/Phys Superv 08/01/2017 77480 ECHO Transthorasic Realtime 2D W Completed Doppler & Color Flow Hosp 07/31/2017 63373 EKG, Interpretation Only Completed 07/29/2017 88429 EKG, Interpretation Only Completed 07/20/2017 41389 EKG Tracing & Interpretation Completed 07/02/2016 36119 EKG Tracing & Interpretation Completed 07/02/2015 37882 EKG Tracing & Interpretation Completed 01/07/2015 64043 EKG Tracing & Interpretation Completed 12/22/2014 Diabetic Retinal Eye Exam Completed Document: 12/22/14 - Consult Ophthalmology-Dr. Butler 10/26/2014 84608 Polysomnography Sleep Staging 4+ Completed Parameters W/Cpap 09/17/2014 82633 EKG Tracing & Interpretation Completed 07/16/2014 98769 EKG Tracing & Interpretation Completed 03/28/2014 94967 ECHO Transthoracic, Real-Time 2D Completed With Doppler And Color Flow 03/15/2014 26184 Cardioversion Completed 03/15/2014 51098 EKG, Interpretation Only Completed 03/15/2014 51958 Color Flow Doppler/Interp & Completed Reprt 03/15/2014 22606 Echocardiography, Completed Transesophageal, Real Time W/Image 2D W/W/O M-M 03/15/2014 18919 Pulse Wave/Continuous-Interp.RPT Completed 02/28/2014 21554 EKG, Interpretation Only Completed 02/28/2014 06643 Cardioversion Completed 02/26/2014 40780 Holter Monitoring 24 HR New Completed 02/21/2014 87224 EKG Tracing & Interpretation Completed 02/08/2014 08522 Echocardiography, Completed Transesophageal, Real Time W/Image 2D W/W/O M-M 02/08/2014 63936 Color Flow Doppler/Interp & Completed Reprt 02/08/2014 45452 Cardioversion Completed 02/08/2014 28390 Pulse Wave/Continuous-Interp.RPT Completed 02/02/2014 33120 EKG Tracing & Interpretation Completed 01/26/2014 51989 EKG Tracing & Interpretation Completed 01/26/2014 83447 Holter Monitoring 24 HR New Completed 01/22/2014 01628 EKG Tracing & Interpretation Completed 11/22/2013 51933 EKG Tracing & Interpretation Completed 11/16/2013 78530 ECHO Transthoracic, Real-Time 2D Completed With Doppler And Color Flow 08/16/2013 30318 Left Heart Cath. Incl S/I Completed Coronaries, Angio S/I V Gram If Done 08/07/2013 29065 EKG Tracing & Interpretation Completed 07/28/2013 01262 Echocardiography, Completed Transesophageal, Real Time W/Image 2D W/W/O M-M 07/28/2013 73782 EKG, Interpretation Only Completed 07/28/2013 18638 Cardioversion Completed 07/28/2013 65471 Color Flow Doppler/Interp & Completed Reprt 07/28/2013 81958 Pulse Wave/Continuous-Interp.RPT Completed 07/24/2013 70307 EKG Tracing & Interpretation Completed 06/08/2013 28510 ECHO Transthoracic, Real-Time 2D Completed With Doppler And Color Flow 11/21/201080384 Injection Single Tendon Completed Origin/Insertion Encounters Type Date Location Provider CPT E/M Dx Office Visit 09/07/2017 [facility] JENY Escalante 98547YPE I48.4 2:00p [place] Office Visit 08/26/2017 [facility] Terry Marquez M.D. 97890 I48.4 3:45p [place] R06.02 I34.1 Office Visit 08/02/2017 8:42a [facility], Evy Blackmon, N.P. 40530 A41.51 Hospitalists N41.0 I48.91 I10 Office Visit 08/01/2017 8:42a [facility], Evy Blackmon N.Shu 11097 A41.51 Hospitalists N41.0 I48.91 I10 Office Visit 07/31/2017 8:41a [facility], JENY Greene 10603 A41.51 Hospitalists N41.0 I48.91 I10 Office Visit 07/30/2017 8:39a [facility], Janette Olmedo 06153 A41.51 Hospitalists [place] N41.0 I48.91 I10 Office Visit 07/29/2017 8:38a [facility], Janette Olmedo 66647 A41.51 Hospitalists [place] N41.0 I48.91 I10 Office Visit 07/20/2017 9:45a [facility] Terry Marquez M.D. 79177 I48.0 [place] I48.4 I34.1 Office Visit 07/02/2016 1:45p [facility] Terry Marquez M.D. 00042 I48.0 [facility] I34.1 I48.92 R94.5 Office Visit 07/09/2015 10:00a [facility] Services Aston Liu, 62868 M75.111 Of Chris Patterson M77.41 S46.001A Office Visit 07/02/2015 9:00a [facility] Terry Marquez M.D. 70496 I48.0 [facility] I48.4 Office Visit 01/17/2015 3:30p Pul[place] [address] 327.23 Services Of [facility] Office Visit 01/07/2015 8:00a [facility] Of Trinidad Marquez M.D. 09710 427.31 [facility] 327.23 379.90 Office Visit 11/29/2014 3:30p Pul[place] [address] 327.23 Services Of [facility] 427.31 Office Visit 10/17/2014 2:45p [facility] [address] 780.59 Services Of [facility] 427.32 424.0 Office Visit 09/17/2014 9:00a [facility] Terry Marquez M.D. 66166 427.32 [place] 424.0 780.50 Office Visit 07/16/2014 8:00a [facility] Terry Marquez M.D. 40599 427.31 [place] 424.0 424.2 Office Visit 06/07/2014 8:00a Rheumatology Services Rylan Parham M.D. 47277 715.14 Of [facility] Office Visit 02/23/2014 4:30p [facility] Of Trinidad Marquez M.D. 02769 427.32 [facility] Office Visit 02/21/2014 3:00p [facility] JENY Escalante 09471 427.31 427.32 425.9 Office Visit 02/02/2014 2:30p [facility] Of [facility] JENY Escalante 07558 427.31 427.32 Office Visit 01/26/2014 3:30p [facility] Of [facility] JENY Escalante 20987 427.32 427.31 424.0 Office Visit 01/22/2014 7:45a [facility] Terry Marquez M.D. 60652 427.32 [facility] 424.0 425.9 Office Visit 11/22/2013 8:00a [facility] Of Trinidad Marquez M.D. 76441 424.0 [facility] 425.9 784.7 Office Visit 08/28/2013 10:45a [facility] Of Trinidad Marquez M.D. 40210 427.31 [place] 424.0 Office Visit 08/22/2013 8:45a [facility] Of Nagi Ramirez M.D., 17209 424.0 [facility] At [facility], FSC[facility] 427.31 Office Visit 08/07/2013 1:15p [facility] Trinidad Marquez M.D. 02920 424.0 [place] 427.31 Office Visit 07/24/2013 4:00p [facility] Of Trinidad Marquez M.D. 80991 427.31 [facility] 424.0 428.0 Office Visit 04/16/2011 3:45p Orthopedic Services ARI Dorsey 91932 726.32 Of C.M.ABriana Office Visit 03/04/2011 3:30p Orthopedic Services ARI Dorsey 25632 726.32 Of C.[facility]ana Office Visit 12/29/2010 4:00p Orthopedic Services Danisha 92058 726.32 Of Chris Zavala M.D. Office Visit 11/21/2010 9:30a [facility] Danisha 08365 726.32 Of Chris Zavala M.D. Plan of Care Future Appointment(s):10/21/2017 9:00 am - Trinidad Marquez M.D. at [facility] [place] - Jayshree Wilson, PAI34.1 Nonrheumatic mitral ( valve) vysecfwtC24.4 Atypical atrial flutterFollow up:Followup 1 week after Tikosyn discharge with FUNCTIONAL ARCHITECT/MD- can be with Reyna Suarez06.02 Shortness of breath
--- OUTSIDE RECORDS SUMMARY | 2017-10-20 08:51 | XMS REPORT ---
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 Fay Johnson MD Primary Care Physician Unavailable Payers Type Date Identification Numbers Payment Provider Subscriber Medicare Primary Policy Number: [id number] Medicare Duncan Newton PayID: [id number] [address] [place] [address] Commercial Policy Number: [id number] Lifetime Benefit Solution Duncan Newton Group Number: [id number] [address] PayID: [place] [address] Problems Date Description Provider Status Onset: 07/24/2013 [...] Drug Use Never Used Drugs Daily Caffeine Regular Coffee 1 cup every 3 day(has not had caffeine in past three weeks) Daily Caffeine Herbal tea Exercise Type/Frequency Exercises regularly not as regular in the cold weather Allergies, Adverse Reactions, Alerts Date Description Reaction Status Severity Comments 07/24/2013 NKDA active 08/28/2013 Cat Dander asthma- wheezing, constrict, eyes active itchy, puffy eyes 07/16/2014 Ragweed active per patient 09/07/2017 Dust Mites active Medications Medication Date Status Form Strength Qnty SIG Indications Ordering Provider Sotalol HCL (AF) 08/26/ Active Tablets 80mg 180ta 1 tab by I48.4 Trinidad 2017 bs mouth twice [place], a day M.D. Magnesium Oxide 01/19/ Active Tablets 400(241.3 100ta 1 tab by Trinidad 2014 Mg) mg bs mouth every [place], day five M.D. days a week Atorvastatin [...] 5mg 1 tablet po Alex, 0000 daily Fay Tavares MD fall Metoprolol / Active Tablets 50mg 60tab 1 by mouth [place] Tartrate 0000 s twice a day Yesenia Marquez Vitamin B12 / Active Tablets 1000mcg 1 by mouth Unknown 0000 ER every day Vitamin B6 / Active 100 mg daily Unknown 0000 Multaq 06/11/ Hx Tablets 400mg 180ta 1 by mouth I48.4 Trinidad 2013 - bs twice a day [place], M.DBriana 2016 Amiodarone HCL 02/23/ Hx Tablets 200mg 60tab 1-2 by mouth 427.32 Trinidad 2013 - s every day as Jimmy, 06/11/ M.DBriana 2013 Sotalol HCL (AF) 01/22/ Hx Tablets 80mg 90tab 1 tab twice 427.32 Trinidad 2013 - s a day [place], M.D. 2013 Metoprolol 11/22/ Hx Tablets 50mg 60tab 1 tab po bid Trinidad Tartrate 2013 [place], M.D. 2013 Metoprolol 11/07/ Hx Tablets 25mg 1 po bid Trinidad Tartrate 2013, M.D. 2013 Metoprolol 08/07/ Hx Tablets 50mg 90tab 1 1/2 po qd Trinidad Succinate ER 2012 - ER 24HR s [place], 11/01/ M.D. 2013 Spironolactone 08/07/ Hx Tablets 25mg 30tab 1 po qod Trinidad 2012 - alternating [place], 11/22/ with lasix. M.DBriana 2013 Voltaren Gel 03/04/ Hx Gel 1% 3X100 2 gram to Danisha 2010 - G elbow 4 Enriquez-Yo 11/01/ times A day Yesenia christopher 2013 Warfarin Sodium / Hx 5mg As directed Mehran, 0000 - adjusted Dr. Carlitos MD 2016 Laurent Vitamin B6 / Hx 100mg po qd Unknown - 2016 Complex B 0000/ Hx Tablets 90tab 1 po qd Unknown 0000 - s 2017 Furosemide /00/ Hx Tablets 40mg 60tab 1 po qod Unknown 0000 - s alternating 2013 spironolacto ne. Potassium 00/ Hx 8Meq Unknown - 2012 Diltiazem CD / Hx Caps ER 120mg 90cap 1 po qd Unknown 0000 - 24HR s 2012 Glucosamine / Hx Capsules 1500Com 1 po qd Unknown Chondroitin 1500 0000 - Complex 2013 Calcipotriene / Hx Cream 0.005% prn Unknown - 2013 Clarinex / Hx 5mg prn seasonal Unknown - 2016 Proair HFA / Hx Aerosol 108(90Bas 1unit 2 puffs po Unknown 0000 - e) s q4h prn 09/16/ mcg/Act 2013 Cheratussin ac / Hx prn Unknown 2013 Acetaminophen ER / Hx Tablets 650mg [...] bid Unknown 0000 - s 2013 Omeprazole / Hx Capsules 40mg 30cap 1 by mouth Unknown 0000 - DR s every day 2014 Cpap /00/ Hx every night Unknown 0000 - 2015 Medications Administered in Office Medication Date Status Form Strength Qnty SIG Indications Ordering Provider Celestone 3 mg Administered Injection Danisha and 3mg 011 Juan fernández M.D. Vital Signs Date Vital Result Comment 10/11/2017 Height 67.5 inches 5'7.50" Weight 172.00 [...] H/L Range Note Order 07/02/2016 EKG <pending> Laboratory test 12/26/2015 LDL Cholesterol Direct 85 mg/dL 1 finding Ast (Sgot) 58 U/L High 13-39 Basic Metabolic Panel 12/26/2015 Sodium 137 mmol/L 133-145 Potassium 4.2 mmol/L 3.5-5.0 Chloride 103 mmol/L 101-111 Co2 Carbon Dioxide 25 mmol/L 22-32 Anion Gap 9 mmol/L 2-11 Glucose 82 mg/dL 70-100 Blood Urea Nitrogen 17 mg/dL 6-24 Creatinine 0.97 mg/dL 0.67-1.17 BUN/Creatinine Ratio 17.5 8-20 Calcium 9.4 mg/dL 8.6-10.3 Egfr Non- 77.7 >60 Egfr 99.9 >60 2 CBC Auto Diff 07/05/2015 White Blood Count [...] Non- 88.3 >60 Egfr 113.6 >60 8 Inr/Protime 04/06/2014 Inr 4.02 High 0.85-1.06 Laboratory test finding 04/06/2014 Free T4 0.88 ng/mL 0.61-1.12 TSH (Thyroid Stimulating Horm) 2.12 IU/mL 0.34-5.60 Laboratory test finding 04/03/2014 Inr 5.09 High [...] test finding 02/28/2014 Inr 1.43 High 0.85-1.06 Inr/Protime 02/05/2014 Inr 2.77 High 0.85-1.06 13 Basic Metabolic Panel 02/05/2014 Sodium 139 mmol/L 133-145 Potassium 4.3 mmol/L 3.7-5.6 Chloride 105 mmol/L 101-111 Co2 Carbon Dioxide 27 mmol/L 22-32 Anion Gap 7 mmol/L 2-11 Glucose 95 mg/dL 70-100 Blood Urea Nitrogen 17 mg/dL 6-24 Creatinine 0.81 mg/dL 0.67-1.17 BUN/Creatinine Ratio 21.0 High 8-20 Calcium 9.3 mg/dL 8.6-10.3 Egfr Non- 96.2 >60 Egfr 123.8 >60 14 Basic Metabolic Panel 01/17/2014 Sodium 135 [...] Non- 113.9 >60 Egfr 146.5 >60 32 Laboratory test finding 07/27/2013 Inr 4.27 High 0.87-0.97 Basic Metabolic Panel 07/27/2013 Sodium 137 mmol/L 133-145 Potassium 4.3 mmol/L 3.5-5.0 Chloride 102 mmol/L 101-111 Co2 Carbon Dioxide 24.0 mmol/L 22-32 Anion Gap 11.0 mmol/L 2-11 Glucose 109 mg/dL High 70-100 Blood Urea Nitrogen 16 mg/dL 6-24 Creatinine 0.80 mg/dL 0.50-1.40 BUN/Creatinine Ratio 20.0 8-20 Calcium 9.2 mg/dL 8.1-9.9 Egfr Non- 97.6 >60 Egfr 125.6 >60 33 Basic Metabolic Panel 07/21/2013 Sodium 137 mmol/L 133-145 Potassium 4.0 mmol/L 3.5-5.0 Chloride 101 mmol/L 101-111 Co2 Carbon Dioxide 27.0 mmol/L 22-32 Anion Gap 9.0 mmol/L 2-11 Glucose 96 mg/dL 70-100 Blood Urea Nitrogen 14 mg/dL 6-24 Creatinine 0.80 mg/dL 0.50-1.40 BUN/Creatinine Ratio 17.5 8-20 Calcium 8.9 mg/dL 8.1-9.9 Egfr Non- 97.6 >60 Egfr 125.6 >60 34 Laboratory test finding 07/21/2013 Inr 1.95 High 0.87-0.97 Laboratory test finding 06/05/2013 Inr 2.84 High 0.87-0.97 Laboratory test finding 06/02/2013 Inr 4.50 High 0.87-0.97 Inr/Protime 05/30/2013 Inr 1.18 High 0.87-0.97 Hemoglobin/Hematacrit 05/30/2013 Hemoglobin 15.3 g/dL 14.0-18.0 Hematocrit 45 % 42-52 Basic Metabolic Panel 05/30/2013 Sodium 138 mmol/L 133-145 Potassium 4.2 mmol/L 3.5-5.0 Chloride 105 mmol/L 101-111 Co2 Carbon Dioxide 26.0 mmol/L 22-32 Anion Gap 7.0 mmol/L 2-11 Glucose 130 mg/dL High 70-100 Blood Urea Nitrogen 16 mg/dL 6-24 Creatinine 1.00 mg/dL 0.50-1.40 BUN/Creatinine Ratio 16.0 8-20 Calcium 9.3 mg/dL 8.1-9.9 Egfr Non- 75.5 >60 Egfr 97.1 >60 35 Laboratory test finding 05/30/2013 TSH (Thyroid Stimulating 1.33 miu/mL 0.34-5.60 Horm) 1 Desirable: <100 mg/dL Near Optimal: 100-129 mg/dL Borderline High: 130-159 mg/dL High: 160-189 mg/dL Very High: >189 mg/dL 2 Because ethnic data is not always readily [...] 15-29 5 Kidney failure <15 (or dialysis) 3 Because ethnic data is not always [...] Serum levels of PSA measured using the Vignani DXI Hybritech immunoassay should not be interpreted [...] 9 Verbal to Jolly Esparza RN by [id number] at 0904 on 03/26/14. Results read back accurately. 10 Verbal to Jolly by [id number] at 0830 on 03/14/14.~Results read back accurately. 11 Verbal to Jolly by [id number] at 0830 on 03/14/14. Results read back [...] 5 Kidney failure <15 (or dialysis) 13 To be drawn Wednesday02/05/14 Because ethnic data is not always readily [...] 15-29 5 Kidney failure <15 (or dialysis) 15 Because ethnic data is not always [...] levels of PSA measured using the Osorio Spock DXI Hybritech immunoassay should not be interpreted as absolute evidence of the presence or absence of disease. The PSA value should be used in conjunction with other pertinent clinical diagnostic procedures. The values obtained with different assay methods or kits cannot be used interchangeably. 18 Verbal to TERRI LEE by [id number] at 0926 on 11/10/13. Results read back [...] reference range effective 13. 26 Verbal to [id number] by [id number] at 1033 on 08/16/13. Results read back [...] Procedures Date CPT Code Description Status Comment 10/11/2017 43426 EKG Tracing & Interpretation Completed 09/09/2017 13659 Cardioversion Completed 09/07/2017 09166 EKG Tracing & Interpretation Completed 08/26/2017 57565 EKG Tracing & Interpretation Completed 08/24/2017 39819 ECHO Stress Test Incl Perf Completed Contiuous ekg Monitoring W/Phys Superv 08/01/2017 72256 ECHO Transthorasic Realtime 2D W Completed Doppler & Color Flow Hosp 07/31/2017 44809 EKG, Interpretation Only Completed 07/29/2017 89400 EKG, Interpretation Only Completed 07/20/2017 16433 EKG Tracing & Interpretation Completed 07/02/2016 85655 EKG Tracing & Interpretation Completed 07/02/2015 73768 EKG Tracing & Interpretation Completed 01/07/2015 74526 EKG Tracing & Interpretation Completed 12/22/2014 Diabetic Retinal Eye Exam Completed Document: 12/22/14 - Consult Ophthalmology-Dr. Butler 10/26/2014 61410 Polysomnography Sleep Staging 4+ Completed Parameters W/Cpap 09/17/2014 21288 EKG Tracing & Interpretation Completed 07/16/2014 46422 EKG Tracing & Interpretation Completed 03/28/2014 31264 ECHO Transthoracic, Real-Time 2D Completed With Doppler And Color Flow 03/15/2014 51274 Cardioversion Completed 03/15/2014 18986 EKG, Interpretation Only Completed 03/15/2014 38582 Color Flow Doppler/Interp & Completed Reprt 03/15/2014 71890 Echocardiography, Completed Transesophageal, Real Time W/Image 2D W/W/O M-M 03/15/2014 51592 Pulse Wave/Continuous-Interp.RPT Completed 02/28/2014 49237 EKG, Interpretation Only Completed 02/28/2014 06112 Cardioversion Completed 02/26/2014 77580 Holter Monitoring 24 HR New Completed 02/21/2014 35166 EKG Tracing & Interpretation Completed 02/08/2014 92482 Echocardiography, Completed Transesophageal, Real Time W/Image 2D W/W/O M-M 02/08/2014 18648 Color Flow Doppler/Interp & Completed Reprt 02/08/2014 46625 Cardioversion Completed 02/08/2014 10673 Pulse Wave/Continuous-Interp.RPT Completed 02/02/2014 63590 EKG Tracing & Interpretation Completed 01/26/2014 55684 EKG Tracing & Interpretation Completed 01/26/2014 84471 Holter Monitoring 24 HR New Completed 01/22/2014 27090 EKG Tracing & Interpretation Completed 11/22/2013 87071 EKG Tracing & Interpretation Completed 11/16/2013 71287 ECHO Transthoracic, Real-Time 2D Completed With Doppler And Color Flow 08/16/2013 79082 Left Heart Cath. Incl S/I Completed Coronaries, Angio S/I V Gram If Done 08/07/2013 64149 EKG Tracing & Interpretation Completed 07/28/2013 38797 Echocardiography, Completed Transesophageal, Real Time W/Image 2D W/W/O M-M 07/28/2013 46258 EKG, Interpretation Only Completed 07/28/2013 11779 Cardioversion Completed 07/28/2013 72573 Color Flow Doppler/Interp & Completed Reprt 07/28/2013 12617 Pulse Wave/Continuous-Interp.RPT Completed 07/24/2013 30341 EKG Tracing & Interpretation Completed 06/08/2013 62392 ECHO Transthoracic, Real-Time 2D Completed With Doppler And Color Flow 11/21/201092383 Injection Single Tendon Completed Origin/Insertion Encounters Type Date Location Provider CPT E/M Dx Office Visit 10/11/2017 1:30p [facility] Trin[place] Marquez M.D. 11877 I48.4 [facility] R06.02 I34.1 Office Visit 09/07/2017 2:00p [facility] JENY Escalante 01197SRL I48.4 [facility] Office Visit 08/26/2017 3:45p [facility] Trin[place] Marquez 25465 I48.4 Eddi Patterson R06.02 I34.1 Office Visit 07/20/2017 9:45a [facility] [place] Marquez M.D. 93910 I48.0 [employer] I48.4 I34.1 Office Visit 07/02/2016 1:45p [facility] Terry Marquez M.D. 58474 I48.0 [facility] I34.1 I48.92 R94.5 Office Visit 07/09/2015 10:00a Orth[facility] Services Aston Liu, 09613 M75.111 Of Chris Patterson M77.41 S46.001A Office Visit 07/02/2015 9:00a [facility] Terry Marquez M.D. 42121 I48.0 [employer] I48.4 Office Visit 01/17/2015 3:30p Pul[place] [address] 327.23 Services Of [employer] Office Visit 01/07/2015 8:00a [facility] Terry Marquez M.D. 63551 427.31 [employer] 327.23 379.90 Office Visit 11/29/2014 3:30p [facility] [place] [address] 327.23 Services Of Eddi 427.31 Office Visit 10/17/2014 2:45p [facility] [address] 780.59 Services Of [employer] 427.32 424.0 Office Visit 09/17/2014 9:00a [facility] Terry Marquez M.D. 42769 427.32 [employer] 424.0 780.50 Office Visit 07/16/2014 8:00a [facility] Terry Marquez M.D. 51275 427.31 [employer] 424.0 424.2 Office Visit 06/07/2014 8:00a Rheumatology Services Rylan Parham M.D. 52668 715.14 Of [facility] Office Visit 02/23/2014 4:30p [facility] [place] Marquez M.D. 18194 427.32 [facility] Office Visit 02/21/2014 3:00p [facility] JENY Escalante 90365 427.31 427.32 425.9 Office Visit 02/02/2014 2:30p [facility] JENY Escalante 19448 427.31 427.32 Office Visit 01/26/2014 3:30p [facility] JENY Escalante 67880 427.32 427.31 424.0 Office Visit 01/22/2014 7:45a [facility] [place] Marquez M.D. 22703 427.32 [employer] 424.0 425.9 Office Visit 11/22/2013 8:00a [facility] [place] Marquez M.D. 63139 424.0 [employer] 425.9 784.7 Office Visit 08/28/2013 10:45a [facility] [place] Marquez M.D. 60316 427.31 [employer] 424.0 Office Visit 08/22/2013 8:45a [facility] Nagi Ramirez M.D., 97510 424.0 [employer] [facility] 427.31 Office Visit 08/07/2013 1:15p [facility] [place] Marquez M.D. 56281 424.0 [employer] 427.31 Office Visit 07/24/2013 4:00p [facility] Trniidad Marquez M.D. 66808 427.31 [employer] 424.0 428.0 Office Visit 04/16/2011 3:45p [facility]opedic Services ARI Dorsey 70255 726.32 [facility] Office Visit 03/04/2011 3:30p [facility] ARI Dorsey 69106 726.32 [facility] Office Visit 12/29/2010 4:00p [facility] Services Danisha 13395 726.32 Of Chris Zavala M.D. Office Visit 11/21/2010 9:30a [facility] [place] 21254 726.32 Of Chris Zavala M.D. Plan of Care Future Appointment(s):10/15/2017 8:30 am - JENY Escalante at [facility]10/11/2017 - Trinidad Marquez M.D.I48.4 Atypical atrial flutterComments:You are in atrial flutter today.Referral:Chuy Barcenas MD, Cardiac Electrphsyly/ CLNCFollow up:Admit for TIkosyn loading next Wednesday. ECG/OV Wednesday PA/WIRE WALKER Wednesday.Recommendations:STOP VTYWVOMN73.02 Shortness of qxrffsJ90.1 Nonrheumatic mitral (valve) prolapse
[2017-10-20] MEDS ORDERED: Lisinopril TAB* 5 MG PO SCH (11:00)
[2017-10-20] MEDS ORDERED: Saline FLUSH-PERIPHERAL* 10 ML SYRINGE PERIPH SCH (11:00)
[2017-10-20] MEDS: Apixaban* 5 MG TAB PO SCH ×2 (11:08→20:54)
[2017-10-20 11:46] LABS: EGFR Non-African American 103.9 (>60)
[2017-10-20] MEDS ORDERED: Potassium Chlor TAB* 20 MEQ TAB.ER PO ONE (11:52)
[2017-10-20] MEDS: Dofetilide CAP* 250 MCG PO SCH ×2 (12:24→20:54)
[2017-10-20] MEDS: Lisinopril TAB* 5 MG PO SCH (20:54)
[2017-10-20] MEDS: Metoprolol Tartrate TAB* 50 mg PO SCH (20:54)
[2017-10-20] MEDS: Atorvastatin* 10 MG TAB PO SCH (20:54)
--- NOTE | 2017-10-21 01:02 | HP ---
HISTORY AND PHYSICAL: DATE OF ADMISSION: 10/20/16 CHIEF COMPLAINT: Dyspnea on exertion. HISTORY OF PRESENT ILLNESS: Mr. Vern Newton is a 67-year-old gentleman with a history of mitral valve prolapse, who underwent mitral valve repair for severe mitral insufficiency in September 2013 ([facility]). The patient has a history of paroxysmal atrial fibrillation as well as a history of atrial flutter. He underwent flutter ablation in 2013 with (Dr. Barcenas at [facility]), but has had recurrent events of atypical flutter. He was placed on sotalol for recurrence of atrial flutter and cardioverted that failed. The patient's sotalol was discontinued last week and he is being admitted today for Tikosyn loading. PAST MEDICAL HISTORY: 1. Possible rheumatic fever in 1956. 2. Mitral valve prolapse with secondary severe mitral insufficiency. 3. Mitral valve repair on 10/27/13 at [facility]. 4. Psoriasis. 5. Hypertension. 6. Dyslipidemia. 7. Paroxysmal atrial fibrillation. 8. Atypical atrial flutter. 9. Environmental allergies. 10. Sleep apnea. PAST SURGICAL HISTORY: Includes: 1. Mitral valve repair as above. 2. Vasectomy in 1991. 3. Tonsillectomy in 1952. 4. Flutter ablation in 2013. PAST HOSPITALIZATIONS: Include sepsis secondary to prostate problems in May 2017. CURRENT MEDICATIONS: Include: 1. Atorvastatin 10 mg a day. 2. Lisinopril 2.5 mg a day. 3. Eliquis 5 mg b.i.d. 4. Metoprolol 50 mg b.i.d. 5. Magnesium oxide 400 mg 5 days a week. 6. Vitamin D3 1000 units daily in the winter. 7. Fluocinolone acetonide cream p.r.n. 8. Calcipotriene nightly for his psoriasis p.r.n. 9. Amoxicillin dental prophylaxis. 10. Desloratadine 5 mg daily p.r.n. in the fall. 11. Vitamin B12 1000 mcg a day. 12. Vitamin B6 100 mg a day. ALLERGIES: He has no known drug allergies, but is allergic to CAT DANDER, RAGWEED, DUST MITES, RABBITS and GUINEA PIGS. FAMILY HISTORY: Significant that his father had a history of congestive heart failure and sleep apnea. His paternal grandfather had a history of heart disease. His paternal grandmother had a history of stroke. His mother had a history of heart failure. He has no siblings. 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 The patient is . REVIEW OF SYSTEMS: Significant for shortness of breath, bending, leaning, and with strenuous exertion. He denies orthopnea, PND. No lower extremity edema. No change in appetite. No weight gain or weight loss. No recent fevers, chills , sweats. All other 14-point review of systems was unremarkable. PHYSICAL EXAMINATION GENERAL APPEARANCE: He is a fit-appearing, somewhat older gentleman, in no acute distress. VITAL SIGNS: The patient is 5 feet 7 inches, weighs 172 pounds with a BMI of 27. On arrival, the patient was in atrial flutter with a ventricular rate of 88 beats a minute, respiratory rate of 16, oxygen saturation on room air was 97%. Blood pressure 117/77, he was afebrile. HEENT: Pupils are equal and round. Mucous membranes are moist. NECK: Without increased JVP appreciated. Good carotid pulses. No audible bruits. LUNGS: Clear with good effort. No wheezes, rales, or rhonchi. CORONARY: S1, S2. Somewhat irregular. ABDOMEN: Flat. Active bowel sounds, soft and nontender. EXTREMITIES: Lower extremities free of edema and warm and well perfused. NEUROLOGIC: Awake, alert, and oriented to person, place, and time. Cranial nerves II through XII intact. Grossly normal sensory and motor function in the upper and lower extremities and normal gait. PSYCHOLOGIC: Pleasant and cooperative. SKIN: Warm and dry. No cyanosis or rashes. DIAGNOSTIC STUDIES/LAB DATA: The patient's 12-lead ECG this morning on arrival shows atypical flutter with a regular ventricular rate of 82 beats a minute, QRS axis +30, normal intraventricular conduction times, nonspecific ST changes and a QT interval of 413 milliseconds and a corrected QT interval of 453 milliseconds. Labs, sodium 139, potassium 3.8, chloride 106, bicarb 24, glucose 143, BUN 13, creatinine 0.75, AST 47, ALT 47. IMPRESSION AND PLAN: In summary, Mr. Vern Newton is a 67-year-old gentleman with a history of atypical atrial flutter, which was not able to be maintained with Multaq or more recently with sotalol, who has now been off sotalol for a week under rate control with metoprolol and being admitted for Tikosyn loading. Based on his creatinine clearance, although we could start him on 500 mcg b.i.d., I am going to try him on 250 mcg b.i.d. based on his corrected QT interval. We will replete his potassium to keep it above 4 and follow electrolytes. Drug interactions and potential for QT prolongation was discussed with the patient and he is understanding and amenable to proceeding. Additional recommendations will be made pending his clinical course and his response to the above measures. [id number]/CPS #: [id number] MTDD
[2017-10-21 06:11] LABS: EGFR Non-African American 97.8 (>60)
[2017-10-21] MEDS: Dofetilide CAP* 250 MCG PO SCH (08:28)
[2017-10-21] MEDS: Cyanocobalamin TAB* 500 MCG PO SCH (08:36)
[2017-10-21] MEDS: Metoprolol Tartrate TAB* 50 mg PO SCH ×2 (08:36→21:07)
[2017-10-21] MEDS: Apixaban* 5 MG TAB PO SCH ×2 (08:36→21:06)
[2017-10-21] MEDS ORDERED: Potassium Chlor TAB* 20 MEQ TAB.ER PO ONE (09:29)
[2017-10-21] MEDS: Dofetilide CAP* 125 MCG PO SCH ×2 (10:31→21:06)
--- NOTE | 2017-10-21 11:24 | PN ---
Subjective Date of Service: 10/21/17 - CC: sob, in atrial flutter, atypical. Interval History: No new c/o, ambulating on the floor w/o problems. Nursing called about QT interval > 500 at 2:30 AM Medications Active Medications: Apixaban (Eliquis*) 5 mg PO BID COUNT INCLUDES THE [facility] Last Admin: 10/21/17 08:36 Dose: 5 mg Atorvastatin Calcium (Lipitor*) 10 mg PO DAILY@2100 COUNT INCLUDES THE [facility] Last Admin: 10/20/17 20:54 Dose: 10 mg Cyanocobalamin (Vitamin B12 Tab*) 1,000 mcg PO DAILY COUNT INCLUDES THE [facility] Last Admin: 10/21/17 08:36 Dose: 1,000 mcg Dofetilide (Tikosyn Cap*) 125 mcg PO BID COUNT INCLUDES THE [facility] Last Admin: 10/21/17 10:31 Dose: 125 mcg Lisinopril (Prinivil Tab*) 2.5 mg PO DAILY@2100 COUNT INCLUDES THE [facility] Last Admin: 10/20/17 20:54 Dose: 2.5 mg Metoprolol Tartrate (Lopressor Tab*) 50 mg PO BID COUNT INCLUDES THE [facility] Last Admin: 10/21/17 08:36 Dose: 50 mg Objective Vital Signs: Temp Pulse Resp BP Pulse Ox 97.6 F 87 16 138/86 96 10/21/17 08:01 10/21/17 08:01 10/21/17 08:01 10/21/17 08:01 10/21/17 08:01 Oxygen Devices in Use Now: None Appearance: fit appearing somewhat older gentleman seated in no distress. Eyes: No Scleral Icterus, PERRLA Ears/Nose/Mouth/Throat: Clear Oropharnyx, Mucous Membranes Moist Neck: NL Appearance and Movements; NL JVP Respiratory: Symmetrical Chest Expansion and Respiratory Effort, Clear to Auscultation - after coughing, some crackles pre coughing. Cardiovascular: RRR Abdominal: NL Sounds; No Tenderness; No Distention, No Hepatosplenomegaly Extremities: No Edema Skin: No Rash or Ulcers Neurological: Alert and Oriented x 3, NL Gait, NL Muscle Strength and Tone Lines/Tubes/Other Access: Clean, Dry and Intact Peripheral IV Laboratory Results: 10/21/17 05:40 Total Bilirubin 0.80 mg/dL (0.2-1.0) 10/20/17 10:33 AST 47 U/L (13-39) H 10/20/17 10:33 ALT 47 U/L (7-52) 10/20/17 10:33 Alkaline Phosphatase 53 U/L (34-104) 10/20/17 10:33 Total Protein 6.8 g/dL (6.4-8.9) 10/20/17 10:33 Albumin 4.2 g/dL (3.2-5.2) 10/20/17 10:33 Globulin 2.6 g/dL (2-4) 10/20/17 10:33 Albumin/Globulin Ratio 1.6 (1-3) 10/20/17 10:33 EKG Data: ECG's yesterday and today show atypical flutter, regular block. QTc hovering around 500. Assessment/Plan 67 yo with MV prolapse to severe MR to repair with paroxysmal atypical flutter and decreased functional capacity at work and home admitted for Tikosyn loading. QTc long on 250 mcg BID, will decrease to 125 mcg BID. CV today, re eval. QT post CV. KCl given again today. Continue monitoring. Discussed with Dr. Soham Love who will perform cardioversion.
[2017-10-21] MEDS ORDERED: Naloxone* 0.4 MG/ML 1 ML VIAL ONE (12:34)
[2017-10-21] MEDS ORDERED: Flumazenil* 0.1 MG/ML 5 ML MDV ONE (12:34)
[2017-10-21] MEDS ORDERED: fentaNYL* 50 MCG/ML 2 ML VIAL (100 MCG VIAL) ONE (12:34)
[2017-10-21] MEDS ORDERED: Midazolam* 1 MG/ML 10 ML VIAL (10 MG) ONE (12:34)
--- NOTE | 2017-10-21 13:09 | PROCNOTE ---
Cardiology Procedure Note 10/21/2017 External electrical cardioversion as requested by Dr. Marquez Patient in 2:1 atypical atrial flutter Risks, benefits, alternatives discussed and patient wished to proceed Patient has been on eliquis 5 mg po bid for much longer than 1 month without any missed dosing so ZEE not performed prior Patient received conscious sedation with 5 mg IV versed, 75 mcg IV fentanyl Patient successfully cardioverted from atrial flutter to junctional alternating with ventricular escape rhythm transiently in the 40's before returning to normal sinus rhythm Further management per Dr. Marquez
[2017-10-21] MEDS: Atorvastatin* 10 MG TAB PO SCH (21:06)
[2017-10-21] MEDS: Lisinopril TAB* 5 MG PO SCH (21:07)
[2017-10-22 06:23] LABS: EGFR Non-African American 102.3 (>60)
[2017-10-22 09:12] VITALS: BP 129/89
[2017-10-22] MEDS: Cyanocobalamin TAB* 500 MCG PO SCH (09:12)
[2017-10-22] MEDS: Metoprolol Tartrate TAB* 50 mg PO SCH (09:12)
[2017-10-22] MEDS: Apixaban* 5 MG TAB PO SCH (09:12)
[2017-10-22] MEDS: Dofetilide CAP* 125 MCG PO SCH (09:12)
--- NOTE | 2017-10-23 15:16 | DS ---
CC: Dr. Fay Jonhson; Dr. Chuy Barcenas. DISCHARGE SUMMARY: DATE OF ADMISSION: 10/20/17 DATE OF DISCHARGE: 10/22/17 HISTORY OF PRESENT ILLNESS AND HOSPITAL COURSE: Mr. Vern Newton is a 67-year-old gentleman with long standing AFib and flutter. Recently he has had atypical atrial flutter. He was admitted for Tikosyn loading on 10/20/17. His creatinine clearance was good that his baseline ECG showed some prolongati on of the QT interval, so he was started on Tikosyn 250 mcg b.i.d. His QT interval prolonged with 2 doses to 500 milliseconds and therefore the dose was decreased to 125 mcg b.i.d. He underwent an eulalia ctrical cardioversion successfully on day 3 which is 10/21/17 in the afternoon, to sinus rhythm and h is QT interval in sinus rhythm also measured approximately 500 milliseconds and persisted even on the lower dose of Tikosyn. The patient went back into atypical atrial flutter on the morning of 8. The patient was able to ambulate on the floor without difficulty during the admission and had no new complaints during the admission. PROBLEM LIST: 1. Atypical flutter. 2. Flutter ablation in 2013. 3. Rheumatic fever probable 1956. 4. Mitral valve prolapse and severe mitral insufficiency status post repair 2013 ([facility]). 5. Psoriasis. 6. Hypertension. 7. Dyslipidemia. 8. Paroxysmal AFib. 9. Obstructive sleep apnea. 10. Environmental allergies. PAST SURGICAL HISTORY: 1. Mitral valve repair in 2013. 2. Flutter ablation 2013. 3. Vasectomy in 1991. 4. Tonsillectomy in 1952 EXAM ON THE DAY OF DISCHARGE: The patient is 5 feet 7 inches with weight 172 pounds, blood pressure 129/89, pulse was 87 and regular, respiratory rate is 16, oxygen saturation on room air 98%, he was 9 7.6 degrees Fahrenheit. General appearance, thin appearing somewhat older gentleman in no acute dist ress. Psychologically calm, cooperative, pleasant. Neurologically, awake and oriented to person, carson ce and time. Cranial Nerves: II through XII intact grossly normal. Sensory and motor function in th e upper and low extremities and normal gait. Skin: Warm, dry, well healed midline sternotomy scar. No cyanosis or rashes. HEENT: Pupils are equal, round. Mucous membranes moist. Neck: Without incr eased JVP. Breath sounds clear in all khan. No wheezes, rales or rhonchi. Coronary: S1, S2. Reg ular. Abdomen: Soft, nontender. Lower extremities, free of edema. LABS ON THE DAY OF DISCHARGE: Sodium 137, potassium 4.1, chloride 104, bicarb 26, BUN 15, creatinine 1.76, glucose 107 (143 at admission), AST 47, ALT 47, total protein 6.8, albumin 4.2. EKG 10/22/17 showed atypical atrial flutter with a ventricular rate of 90 beats a minute, QRS axis 0, normal interventricular conduction times, corrected QT interval of 505 milliseconds. EKG status pos t cardioversion 10/21/17 at 1:30 in the afternoon showed normal sinus rhythm, 58 beats a minute, QRS axis +60, normal AV conduction times, corrected QT interval 509 milliseconds. In summary, Mr. Duncan Newton is a 67-year-old gentleman who underwent mitral valve repair for mi tral valve prolapse and insufficiency in 2013 with atypical atrial flutter that has failed Multaq and sotalol and he was admitted for Tikosyn loading. He also received 80 mEq of potassium on admission for mild hypokalemia of 3.8. So he underwent Tikosyn loading with low dose Tikosyn and with medication adjustments for prolonged Q T interval, but both failed to maintain sinus rhythm and his QT intervals were unacceptably long. The decision was made not to continue Tikosyn therapy and the patient was sent home on the following medications: 1. Eliquis 5 mg b.i.d. 2. Lipitor 10 mg a day. 3. Vitamin B12 at 1000 mcg a day. 4. Lisinopril 2.5 mg a day. 5. Metoprolol 50 mg b.i.d. The patient will follow up in our office as well as with Electrophysiolog y, Dr. Chuy Barcenas. The patient had no ventricular ectopy and no hemodynamic compromise during e admission. [id number]/[facility] #: [id number]
== END 2017-10-22 11:00 | disposition home or self-care (01) | DRG 310 ==
LOC: MEDTELE 10-20 08:44
PROVIDERS: ADMIT Specialist; ATTEND Specialist
PROC: 5A2204Z Restoration of Cardiac Rhythm, Single (ICD-10-PCS; principal; 2017-10-21)
DX: I48.92 Unspecified atrial flutter (principal); I45.81 Long QT syndrome; L40.9 Psoriasis, unspecified; I10 Essential (primary) hypertension; E78.5 Hyperlipidemia, unspecified; I48.0 Paroxysmal atrial fibrillation; E87.6 Hypokalemia; G47.33 Obstructive sleep apnea (adult) (pediatric); Z98.52 Vasectomy status; Z79.01 Long term (current) use of anticoagulants; Z91.048 Other nonmedicinal substance allergy status; Z82.49 Family history of ischemic heart disease and other diseases of the circulatory system; Z83.6 Family history of other diseases of the respiratory system; Z82.3 Family history of stroke; Z87.891 Personal history of nicotine dependence
CPT/HCPCS: 36415; 80048; 80053; 83735; 93005; A9270-GY; J2250; J2310; J3010

== ENCOUNTER 2017-12-16 17:34 | Emergency (ER) | payer MEDICARE, OTHER ==
[2017-12-16 17:42] VITALS: BP 122/81
--- NOTE | 2017-12-16 18:00 | UC ---
Eye Complaint HPI - HPI Summary HPI Summary: Patient presents to the was chief complaint bilateral eye irritation, injection, itchiness, purulent drainage since this afternoon. He denies any known sick contacts, but has been at a hospital and gym recently. Denies any recent illness. Denies any pain or blurry vision or double vision. He has never had conjunctivitis in the past. He has not used anything for relief. - History of Current Complaint Chief Complaint: UCEye Stated Complaint: eye irritation Time Seen by Provider: 12/16/17 17:48 Hx Obtained From: Patient Onset/Duration: Sudden Onset Timing: Constant Severity Initially: Moderate Severity Currently: Moderate Pain Intensity: 0 Pain Scale Used: 0-10 Numeric Location of Injury: Conjunctiva Aggravating Factor(s): Nothing Alleviating Factor(s): Nothing Associated Signs And Symptoms: Positive: Drainage (Purulent) - Risk Factors Penetrating Injury Risk Factor: Negative Acute Glaucoma Risk Factors: Eye Inflammation Optic Artery Occlusion Risk Factors: Negative - Allergies/Home Medications Allergies/Adverse Reactions: Allergies Allergy/AdvReac Type Severity Reaction Status Date / Time No Known Allergies Allergy Verified 07/15/15 11:43 PMH/Surg Hx/FS Hx/Imm Hx Previously Healthy: Yes - Surgical History Surgical History: Yes Surgery Procedure, Year, and Place: 1952- TONSILECTOMY. GANGLION CYST - HAND. 1995 - VASECTOMY. 2013 - OPEN HEART - REPAIRED MITRAL VALVE - Family History Known Family History: Positive: Cardiac Disease, Other - CHF - Social History Occupation: Unemployed Lives: With Family Alcohol Use: Occasionally Substance Use Type: None Smoking Status (MU): Former Smoker - Immunization History Most Recent Influenza Vaccination: june 2017 Most Recent Pneumonia Vaccination: 2014 Review of Systems Constitutional: Negative Skin: Negative Eyes: Drainage, Eye Redness ENT: Negative Respiratory: Negative Motor: Negative Neurovascular: Negative Musculoskeletal: Negative Neurological: Negative Is Patient Immunocompromised?: No All Other Systems Reviewed And Are Negative: Yes Physical Exam Triage Information Reviewed: Yes Appearance: Well-Appearing, No Pain Distress, Well-Nourished Vital Signs: Initial Vital Signs Temp 97.2 F 12/16/17 17:39 Pulse 80 12/16/17 17:39 Resp 18 12/16/17 17:39 BP 122/81 12/16/17 17:39 Pulse Ox 96 12/16/17 17:39 Vital Signs Reviewed: Yes Eyes: Positive: Conjunctiva Inflamed, Discharge Neck exam: Normal Neck: Positive: Supple Respiratory Exam: Normal Respiratory: Positive: Chest non-tender Cardiovascular Exam: Normal Neurological Exam: Normal Neurological: Positive: Alert Psychological: Positive: Age Appropriate Behavior Skin Exam: Normal Eye Complaint Course/Dx - Course Course Of Treatment: Patient is evaluated for conjunctivitis.. Drainage bilaterally with injection, and itchiness. Likely bacterial conjunctivitis. Patient is given polymyxin trimethoprim drops. He is given care instructions. - Differential Dx/Diagnosis Differential Diagnosis/HQI/PQRI: Conjunctivitis Provider Diagnoses: Bilateral conjunctivitis Discharge - Sign-Out/Discharge Documenting (check all that apply): Discharge - Discharge Plan Condition: Stable Disposition: HOME Prescriptions: Polymyx/Trimethoprim OPTH* [Polytrim OPHTH*] 1 drop BOTH EYES Q3H #1 btl Patient Education Materials: Conjunctivitis (ED) Referrals: Fay Johnson MD [Primary Care Provider] - Additional Instructions: Instill 1 drop in affected eye(s) every 3 hours (maximum: 6 doses per day) for 7 -10 days Wash hands frequently If symptoms worsen, return to the - Billing Disposition and Condition Condition: STABLE Disposition: HOME
== END 2017-12-16 18:05 | disposition home or self-care (01) ==
LOC: UCEAST 17:34
DX: H10.9 Unspecified conjunctivitis (principal); Z87.891 Personal history of nicotine dependence
CPT/HCPCS: 99212; G0463

== ENCOUNTER 2019-10-25 05:32 | Day surgery (SDC) | payer MEDICARE, OTHER ==
[~2019-10-25 05:32] MED LIST: Buffered Lidocaine 1% SYRIN* 1 ML/SYRINGE INTRADERM ONE
[2019-10-25] MEDS ORDERED: Acetaminophen TAB* 325 MG ONE (05:58)
[2019-10-25] MEDS ORDERED: ceFAZolin 2 GM PREMIX in ORs 2 GM/50 ML BAG ONE (05:59)
[2019-10-25] MEDS ORDERED: Acetaminophen TAB* 325 MG PO ONE (06:00)
[2019-10-25] MEDS ORDERED: Lactated Ringers 1000 ML Bag* 1,000 ML IV SCH (06:00)
[2019-10-25] MEDS ORDERED: Midazolam* 1 MG/ML 2 ML VIAL (2 MG) ONE (07:04)
[2019-10-25] MEDS ORDERED: fentaNYL* 50 MCG/ML 5 ML VIAL (250 MCG VIAL) ONE (07:04)
[2019-10-25] MEDS ORDERED: Propofol* 10 MG/ML 20 ML BTL ONE (07:05)
[2019-10-25] MEDS ORDERED: Lidocaine 2% PF * 5 ML VIAL ONE (07:05)
[2019-10-25] MEDS ORDERED: EPINEPHRINE 1 MG/ML 1 ML VIAL ONE (07:10)
[2019-10-25] MEDS ORDERED: Bupivacaine 0.5%* 50 ML MDV VIAL ONE (07:10)
[2019-10-25] MEDS ORDERED: Rocuronium* 10 MG/ML VIAL ONE (07:13)
[2019-10-25] MEDS ORDERED: ROPIVACAINE 5 MG/ML 30 ML BTL (0.5%) ONE (07:15)
[2019-10-25] MEDS ORDERED: Dexamethasone IV* 4 MG/ML 1 ML (4 MG) ONE (08:04)
[2019-10-25] MEDS ORDERED: Ondansetron INJ* 2 MG/ML VIAL IV PRN (08:49)
[2019-10-25] MEDS ORDERED: PROCHLORPERAZINE INJ 5 MG/ML 2 ML VIAL IV PRN (08:49)
[2019-10-25] MEDS ORDERED: diPHENhydraMINE IV* 50 MG/ML 1 ml VIAL (BENADRYL) IV PRN (08:49)
[2019-10-25] MEDS ORDERED: Naloxone* 0.4 MG/ML 1 ML VIAL IV PRN (08:49)
[2019-10-25] MEDS ORDERED: Metoprolol Tartrate IV* 1 MG/ML 5 ML VIAL ONE ×3 (08:55→09:49)
[2019-10-25] MEDS ORDERED: hydrALAZINE IV* 20 MG/ML VIAL ONE (09:59)
[2019-10-25] MEDS ORDERED: Remifentanil* 2 MG VIAL ONE (10:05)
[2019-10-25 12:48] VITALS: BP 131/70
[2019-10-25] MEDS ORDERED: Ondansetron ODT TAB* 4 MG ONE (13:16)
--- NOTE | 2019-10-25 16:49 | OP ---
DATE OF OPERATION: 10/25/19 - [facility] DATE OF : 50 SURGEON: Aaron Lawrence MD. CYTOTECHNOLOGIST/CYTOLOGY SUPERVISOR: JENY Isaac. A physician nutrition services assistant was required for the length of the procedure for assistance with patient positioning, retraction, instrumentation, and closure. ANESTHESIOLOGIST: Dr. Paulina Hou. ANESTHESIA: General anesthesia, regional interscalene block anesthesia. PRE-OP DIAGNOSES: 1. Right shoulder rotator cuff tear, massive, retracted, supraspinatus, infraspinatus, unclear if repairable. 2. Right shoulder subacromial impingement and bursitis. 3. Right shoulder acromioclavicular joint osteoarthritis. 4. Right shoulder possible biceps tendinosis. POST-OP DIAGNOSES: 1. Right shoulder rotator cuff tendon tear, massive, retracted, supraspinatus, infraspinatus, repairable. 2. Right shoulder subacromial impingement and bursitis. 3. Right shoulder acromioclavicular joint osteoarthritis, minimal. 4. Right shoulder proximal biceps tendinosis, severe. OPERATIVE PROCEDURE: 1. Right shoulder arthroscopic rotator cuff tendon repair surgery, supraspinatus, infraspinatus, double row 6 anchor repair. 2. Modifier 22 for complex procedure given the significant size and significant retraction of the rotator cuff tendon tear. This required a significant amount of debridement, significant amount of thought with regards to how to repair and in which order and under which particular tensions, 6 anchors. 3. Right shoulder arthroscopic subacromial decompression. 4. Right shoulder arthroscopic release of biceps tendon, proximal along with limited debridement. ANTIBIOTICS: Ancef 2 g IV. IV FLUIDS: See anesthesia note. WPRA-CD-TNLS TIME: 162 minutes. SPECIMEN: None. IMPLANTS: Corkscrew 5.5 mm suture anchors double loaded with suture tape from [employer], x4. Also, [employer] SwiveLock 4.75 mm suture anchors x2. COMPLICATIONS: None. ESTIMATED BLOOD LOSS: Minimal. 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 The patient admitted to some prior difficulty with the shoulder including after a fall off of a ski jump in his 20s and after scraping much paint on a particular day in his 60s. He presented to clinic with significant pain and weakness of that right shoulder and an MRI confirmed the diagnosis of a massive rotator cuff tear. Given the questionable repairability of this tear, we had first treated the patient with a cortisone injection and physical therapy, but that did not improve his symptoms at all and so we proceeded forward to surgery. Plan was for a possible rotator cuff repair, a possible rotator cuff repair with superior capsular repair, or a possible partial rotator cuff repair based on the status and repairability of the supraspinatus and infraspinatus. The patient understood. We discussed the risks and potential complications of surgery. DESCRIPTION OF PROCEDURE: In preoperative holding, the patient signed a written consent. Operative extremity was marked in preoperative holding. The patient was taken back to the operating room and placed supine on operating room table. Sedated and intubated. Transformed into the lateral decubitus position. Mcbride bag hardened. Axillary roll. All bony prominences padded. Longitudinal traction 15 pounds with the appropriate amount of forward flexion and abduction. Right shoulder was prepped and draped. Formal surgical time-out performed. Posteriorly, spinal needle was placed into the glenohumeral joint. 30 cc normal saline infused. I established a posterior glenohumeral joint portal. Diagnostic arthroscopy showed excellent shape of articular cartilage glenohumeral joint. There was grade I wear of the articular cartilage at worst. What I did notice immediately was significant elevation of the humeral head versus the glenoid. Also noted significant supraspinatus and infraspinatus tears. There was no significant subscapularis tear noted. There was significant fraying and partial tearing of the long head biceps tendon. I established an anterior glenohumeral joint portal and cut the biceps near its origin. It retracted. I debrided a little bit of rotator cuff interval tissue. I moved to the subacromial space anteriorly and posteriorly. I established lateral and then posterolateral portals under direct visualization. I debrided some minimal subacromial bursitis present with an arthroscopic shaver. The patient had supraspinatus and infraspinatus tears significantly retracted. Supraspinatus at first was retracted to the glenoid. I debrided about both of those tendons superiorly and inferiorly using blunt dissection as well as arthroscopic shaver. Placed traction stitches into the tendons at various times during the case. What I found was that the rotator cuff seemed to be of reasonable quality, it held the sutures of traction. It also was able to mobilize to the humeral head. As I debrided more, the rotator cuff became more mobile. It certainly was not a perfect condition and I had to do a lot of thought with regard to stitch placement to assure maximal excursion. I first decided to repair the infraspinatus tendon before deciding whether a repair or superior capsular repair would be required for the supraspinatus. I made superolateral poke holes. Suture anchors were placed. I should note that prior to placing suture anchors, we prepared the footprint of the infraspinatus and supraspinatus tendons with a cautery device followed by an arthroscopic bur to facilitate good bony healing. After suture anchor was placed, I placed horizontal mattress stitches in the infraspinatus using an antegrade suture passer, Scorpion. Two stitches were placed from the first anchor. I then placed a second anchor and placed two additional horizontal mattress stitches and tied those. At this point, we had two anchors placed, medial row, grabbing infraspinatus. These have brought infraspinatus to bone with a little bit of additional tissue lateral to the stitches. As we tested the supraspinatus at this point, there was excursion enough to get to the rotator cuff footprint and so we decided at this point to go with a full rotator cuff repair rather than a superior capsular repair for treatment of the supraspinatus injury. We next placed two additional suture anchors in the medial footprint. With the repair of the infraspinatus, the gleno-humeral joint became much more centered and so we created some new working portals, an anterolateral portal as well as an accessory lateral portal to work through. We placed horizontal mattress stitches again using an antegrade suture passer. Several times during the case , we also used a retrograde Lasso suture passer. After all of the medial row fixation had been placed, there was a nice rim of repaired rotator cuff tendon tissue. Clearly given the size of the tear and the additional tissue lateral to this, a double row repair was merited. We used 7 suture tapes from the medial row and placed 4 into 1 suture anchor and 3 into another suture anchor laterally under tension. After the repair was complete, the repair was stable to probing as well as to movement of the humerus. Looking from posterior, the cuff covered the entire superior aspect of the humeral head, looking physiologic or anatomic. I was very happy with our repair. I should state that during the course of the rotator cuff repair, we tried to incorporate the biceps into the repair with a stitch, although that stitch pulled through the very tendinotic tissue, so we just treated the biceps with a release rather than a tenodesis. Given the large size of the tear and the possibility of future retear, I decided early in the case in the subacromial space to leave the coracoacromial ligament intact to prevent future anterosuperior escape. Therefore, at this point, I did some subacromial decompression, but I respected the coracoacromial ligament. Used an arthroscopic bur to flatten out the undersurface of the acromion. This was especially the case where there was spurring at the acromion closer to the AC joint. Examination of the AC joint did not appear to show any inferior osteophytes off the clavicle, so I decided to hold off on doing a distal clavicle resection. Removed fluid and instruments from subacromial space. We closed skin incisions with [id number] in 12 stitches using nylon 3-0 suture. Xeroform, 4x4s, ABDs, foam tape. Cooling unit, sling and abduction pillow. The patient was awakened, extubated, and transferred to the PACU. DISPOSITION: The patient will be discharged home with Percocet as needed for pain control. The patient will be in a sling for 8 weeks postoperative with no physical therapy for 8 weeks postoperative. The patient will follow up with me in 10 to 14 days postoperatively. [id number]/[facility] #: [id number] KEITH
== END 2019-10-25 13:50 | disposition home or self-care (01) ==
LOC: OR 05:32
PROVIDERS: ATTEND Orthopaedic Surgery
DX: S46.011A Strain of muscle(s) and tendon(s) of the rotator cuff of right shoulder, initial encounter (principal); M75.41 Impingement syndrome of right shoulder; M75.51 Bursitis of right shoulder; M19.011 Primary osteoarthritis, right shoulder; M75.21 Bicipital tendinitis, right shoulder; W00.0XXA Fall on same level due to ice and snow, initial encounter; Y92.9 Unspecified place or not applicable; I10 Essential (primary) hypertension; E78.5 Hyperlipidemia, unspecified; I08.1 Rheumatic disorders of both mitral and tricuspid valves; G89.18 Other acute postprocedural pain; J30.2 Other seasonal allergic rhinitis; G47.33 Obstructive sleep apnea (adult) (pediatric); I48.91 Unspecified atrial fibrillation; Z87.891 Personal history of nicotine dependence
CPT/HCPCS: A9270-GY; C1713; J0360; J0690; J1100; J2250; J2704; J2795; J3010; J3490

== ENCOUNTER 2023-10-06 10:48 | Inpatient (IN) ==
[2023-10-06] MEDS ORDERED: Lactated Ringers 1000 ml BAG 1,000 ML IV ONE (16:00)
[2023-10-06] MEDS ORDERED: guaiFENesin/CODIENE 100mg/10mg 5 ML UDC PO ONE (16:01)
[2023-10-06] MEDS ORDERED: Albuterol HFA INHALER 8 gm MDI INH ONE (16:02)
[2023-10-06 17:22] LABS: ABS Lymphocytes 0.6 10^3/uL (1.0-4.8); ABS Monocytes 0.9 10^3/uL (0.0-1.1); ABS Neutrophils 4.2 10^3/uL (1.5-7.6); ABS Nucleated RBC 0.01 10^3/ul; Hematocrit 44.2 % (38-53); Hemoglobin 15.2 g/dL (13.2-16.3); Lymphocyte % 10.6 %; Mean Corpuscular Hemoglobin 35.4 pg (27-33); Mean Corpuscular Hgb Conc 34.4 g/dL (31-36); Mean Corpuscular Volume 102.8 fL (80-97); Mean Platelet Volume 8.4 fL (7.5-11.2); Nucleated Red Blood Cells % 0.1 %/100WBC (0.0-0.8); Platelet Count 136 10^3/uL (150-450); Red Cell Distribution Width 12.6 % (12-17); White Blood Count 5.7 10^3/uL (3.6-10.2)
[2023-10-06 17:46] LABS: Albumin 4.6 g/dL (3.2-5.2); Albumin/Globulin Ratio 1.6 (1-3); Calcium 9.5 mg/dL (8.6-10.3); Creatinine, Serum 0.8 mg/dL (0.67-1.17); Globulin 2.9 g/dL (2-4); Potassium 4.4 mmol/L (3.5-5.0); Total Bilirubin 1.3 mg/dL (0.2-1.0); Total Protein 7.5 g/dL (6.4-8.9); eGFR CKD-EPI 93.4 (>60)
[2023-10-06] MEDS ORDERED: Albuterol 2.5mg/3 ml (0.083%) NEB.SOLN INH ONE (17:54)
[2023-10-06] MEDS ORDERED: Metoprolol Tartrate 5 mg VIAL 5 ml VIAL (1 mg/ml) IV ONE (19:18)
[2023-10-06] MEDS ORDERED: Albuterol HFA INHALER 8 gm MDI INH PRN (22:58)
[2023-10-06 23:15] LABS: C Reactive Protein 133.67 mg/L (<8.01)
[2023-10-07 05:54] LABS: ABS Lymphocytes 0.8 10^3/uL (1.0-4.8); ABS Monocytes 0.8 10^3/uL (0.0-1.1); ABS Neutrophils 6.5 10^3/uL (1.5-7.6); Hematocrit 39.1 % (38-53); Hemoglobin 13.7 g/dL (13.2-16.3); Lymphocyte % 9.3 %; Mean Corpuscular Hemoglobin 35.9 pg (27-33); Mean Corpuscular Volume 102.6 fL (80-97); Mean Platelet Volume 7.9 fL (7.5-11.2); Nucleated Red Blood Cells % 0.1 %/100WBC (0.0-0.8); Platelet Count 115 10^3/uL (150-450); Red Blood Count 3.81 10^6/uL (4.06-5.63); Red Cell Distribution Width 12.7 % (12-17); White Blood Count 8.1 10^3/uL (3.6-10.2)
[2023-10-07 06:09] LABS: Calcium 8.4 mg/dL (8.6-10.3); Creatinine, Serum 0.69 mg/dL (0.67-1.17); Magnesium 1.8 mg/dL (1.9-2.7); Potassium 3.8 mmol/L (3.5-5.0); eGFR CKD-EPI 97.7 (>60)
[2023-10-07] MEDS ORDERED: Potassium Chlor 20 meq TAB.ER PO ONE (07:34)
[2023-10-07] MEDS ORDERED: Magnesium Sulfate 2 gm BAG 2 GM/50 ML BAG IVPB ONE (07:34)
[2023-10-07] MEDS: Cholecalciferol (VIT D3) 1,000 unit TAB PO SCH (09:10)
[2023-10-07] MEDS ORDERED: cefTRIAXone 2 gm/50 mL D5W 2 GM/50 ML BAG IV SCH (10:00)
[2023-10-07] MEDS ORDERED: Azithromycin 500 mg/250 ml NS 500 MG/250 ML BAG IVPB SCH (10:30)
[2023-10-08 06:35] LABS: Hematocrit 40.7 % (38-53); Hemoglobin 13.8 g/dL (13.2-16.3); Mean Corpuscular Hemoglobin 35.1 pg (27-33); Mean Corpuscular Hgb Conc 33.9 g/dL (31-36); Mean Corpuscular Volume 103.5 fL (80-97); Mean Platelet Volume 8.2 fL (7.5-11.2); Platelet Count 121 10^3/uL (150-450); Red Blood Count 3.93 10^6/uL (4.06-5.63); Red Cell Distribution Width 12.5 % (12-17); White Blood Count 4.4 10^3/uL (3.6-10.2)
[2023-10-08 06:53] LABS: Calcium 8.2 mg/dL (8.6-10.3); Creatinine, Serum 0.59 mg/dL (0.67-1.17); Magnesium 2.1 mg/dL (1.9-2.7); Potassium 3.5 mmol/L (3.5-5.0); eGFR CKD-EPI 102.4 (>60)
[2023-10-08] MEDS: Cholecalciferol (VIT D3) 1,000 unit TAB PO SCH (08:10)
[2023-10-08] MEDS ORDERED: Albuterol/Ipratropium NEB.SOL (2.5/0.5 MG) 3 ML NEB.SOLN INH PRN (08:23)
[2023-10-08] MEDS ORDERED: cefTRIAXone 2 gm/50 mL D5W 2 GM/50 ML BAG IV SCH (10:00)
[2023-10-08 10:26] VITALS: BP 131/74
[2023-10-08] MEDS ORDERED: Azithromycin 500 mg/250 ml NS 500 MG/250 ML BAG IVPB SCH (10:30)
== END 2023-10-08 15:35 | disposition home or self-care (01) | DRG 193 ==
LOC: ED 10:48 → EDHOLD 20:29 → SUATTDRO 20:29 → MED 10-07 14:20
PROVIDERS: ADMIT Student in an Organized Health Care Education/Training Program; ATTEND Student in an Organized Health Care Education/Training Program